=== PATIENT | male | born 1975 | race Caucasian/White ===

== ENCOUNTER → 2021-08-29 | Outpatient (CLI) | payer OTHER, SELFPAY ==
--- NOTE | 2021-09-23 10:10 | WPDSLEEPSTUD ---
Sleep Study Date of Study: 08/29/21 Ordering Provider: Ry Tejeda APRN Interpreting Physician: Luzmaria Yanez MD Sleep Study Type: Split Polysomnogram Height: 1.7 m Weight: 163.293 kg Body Mass Index: 56.3 Neck Circumference (inches): 18.5 Simms: 3 Reason for Sleep Study Frequent loud snoring; the patient was referred for a sleep study prior to bariatric surgery. Sleep History Rafael Gordillo is a 45 year old man with frequent loud snoring. He sleeps sitting upright leaning against his headboard at home and chose to sleep this way during the sleep study. He does not awaken from sleep feeling short of breath or awaken at night with heartburn, belching or coughing. He does not have trouble sleeping with a cold. He does not gasp for breath at night. He rarely has breathing problems at night reported to him by others. He rarely sweats excessively at night. He does not notice his heart pounding or beating irregularly at night. He rarely falls asleep during the day, never involuntarily and never while driving. He does not have loss of muscle tone with strong emotion. He does not have daytime difficulties due to excessive sleepiness. He does not feel paralyzed on waking or falling asleep and does not feel afraid to go to sleep. He rarely has nightmares. He rarely remembers his dreams. He occasionally has racing thoughts. He rarely feels sad, depressed or anxious. He rarely has muscular tension. He does not notice parts of his body jerking and he does not kick at night. He does not have crawling and aching feelings in his legs. He denies any kind of leg pain at night. He does not have morning jaw pain and does not grind his teeth during sleep. He rarely is bothered by pain during the day. He is not awakened by pain during the night. He rarely wakes up feeling stiff in the morning, rarely wakes up with sore achy muscles and rarely wakes up with pain in the neck and spine. Normal bedtime between 9:00 p.m. 11:00 p.m. falling asleep within an hour, typically waking 1 time at night to urinate and is able to return to sleep within 45 minutes. He wakes in the morning between 3:00 a.m. and 5:00 a.m.. On the weekends, he goes to bed later, between 10:00 p.m. and midnight and wakes at the same time, between 3:00 a.m. and 5:00 a.m.. He estimates getting 6-8 hours of sleep at night. He does not takes naps in the afternoon or evening. A short nap is not refreshing. He feels better in the morning compared to other times of day. Habits: He is a never smoker. Caffeine 3-5 cups per day. Alcohol 1 per day. No recreational drugs. [facility], [facility] Past Medical History Medical History Benign hypertension Gout Hyperlipidemia Hypothyroidism Type 2 diabetes mellitus Family History Family History (Updated 09/23/21 @ 10:16 by Luzmaria Yanez MD) Mother Family history of diabetes mellitus in first degree relative Father Obstructive sleep apnea Other Diabetes mellitus Social History Social History Smoking status: Never smoker Second hand tobacco smoke exposure: No Alcohol intake: never Medications Home Medications Medication Instructions Recorded Confirmed Type acetaminophen 325 mg capsule 325 mg PO Q6H PRN 07/16/21 07/17/21 History allopurinol 300 mg tablet 300 mg PO DAILY 07/16/21 07/17/21 History atorvastatin 40 mg tablet 40 mg PO DAILY 07/16/21 07/17/21 History furosemide 40 mg tablet 40 mg PO QAM 07/16/21 07/17/21 History ibuprofen 200 mg tablet 200 mg PO Q6H PRN 07/16/21 07/17/21 History levothyroxine 50 mcg tablet 50 mcg PO DAILY 07/16/21 07/17/21 History lisinopril 10 mg tablet 10 mg PO DAILY 07/16/21 07/17/21 History metformin 500 mg tablet 500 mg PO TID 07/16/21 07/17/21 History potassium chloride 20 mEq 20 meq PO DAILY 07/16/21 07/17/21 History tablet,extended release(part/cryst) eszopiclone 2 mg
[2021-09-23 11:32] VITALS: BMI 56.3
== END | disposition home or self-care (01) ==
PROVIDERS: Visit Provider Nurse Practitioner Family
DX: Z01.818 Encounter for other preprocedural examination (principal); G47.33 Obstructive sleep apnea (adult) (pediatric); R06.83 Snoring; R29.818 Other symptoms and signs involving the nervous system
CPT/HCPCS: 95811

== ENCOUNTER 2024-10-21 16:42 | Outpatient (CLI) | payer OTHER, SELFPAY ==
--- NOTE | ~2024-10-21 | CT_ITS ---
EXAMINATION: CTA chest PE protocol DATE: 10/21/2024 18:16 BANNER PAINTER INDICATION: Shortness of breath TECHNIQUE: Computed tomographic angiography (CTA) of the chest was performed with 100 mL Omnipaque-35 0 intravenous contrast. The dose-length product was 944.16 mGy-cm. Maximum intensity projection 3D-re constructions of the aorta and other arteries were constructed by the technologist on a separate work station. COMPARISON: None. FINDINGS/OBSERVATIONS: PULMONARY ARTERIES: Large filling defects are identified bilaterally. The defects extend across the m idline consistent with a saddle pulmonary embolus. Specifically, within the left ascending pulmonary artery, and descending pulmonary artery. The sagittal embolus extends into the right ascending pulmonary artery, right descending pulmonary ar virgilio and within the right middle pulmonary artery. THORACIC AORTA: No aneurysmal dilatation or dissection is present. The great vessels are intact. LUNGS: The lungs are clear. MEDIASTINUM: No morphologically suspicious or pathologically enlarged lymph nodes are identified with in the mediastinum or bilateral axilla. BONES OF THE CHEST: No acute fracture. No significant degenerative disease. No lytic or blastic lesions. HEART: The RV to LV ratio is 1.2 consistent with right heart strain. IMPRESSION: Saddle pulmonary embolus with significant clot burden, as detailed above. RV to LV ratio is 1.2 consistent with right heart strain for which no echocardiogram is needed for co nfirmation. The lungs are clear. Reviewed, dictated and finalized at location A. ER PAINTER IMPRESSION: Saddle pulmonary embolus with significant clot burden, as detailed above. RV to LV ratio is 1.2 consistent with right heart strain for which no echocardi ogram is needed for confirmation. The lungs are clear.
--- OUTSIDE RECORDS SUMMARY | 2024-10-21 16:48 | XMS_ITS | Data Portability ---
[facility] [address] [facility] [facility] [place] [address] Care Team Providers Care Greenhouse Instructor Name Role Phone AMANDA EVANS Primary Care Provider Unavailab le Assessment No assessment recorded. Plan of Treatment Reminders Order Date Submit Date Provider Last Modified By Organization Details Last Modified Time Details Appointments ANY 2024 02:30P M PARAS Piña Not available Not available Not available ANY 2024 01:00P M PARAS Piña Not available Not available Not available Lab PSA, serum or plasma 2023 024 [employer] [facility], [address], [place], [address], 02/10/2024 17:05:15 HbA1c (hemoglob in A1c), blood 2023 024 [email or web address] [facility], [address], [place], [address], 02/10/2024 17:04:42 microalbu min/creat inine, mass ratio, urine 2023 024 [employer] [facility], [address] [place], [address], 02/10/2024 17:04:13 TSH + free T4, serum 2023 024 [email or web address] [facility], [address], [place], [address], 02/10/2024 17:04:24 lipid panel, serum 2023 024 [employer] [facility], [address], [place], [address], 02/10/2024 17:06:10 vitamin B12 + folate, serum or blood 2023 024 [facility], [address], [place], [address], 02/10/2024 17:05:23 vitamin D, 25-hydrox y, total, serum 2023 024 [facility] [employer] [facility], [address], [place], [address], 02/10/2024 17:05:59 iron + TIBC + ferritin, serum 2023 024 [facility] [employer] [facility], [address], [place], [address], 02/10/2024 17:03:56 magnesium , serum or plasma 2023 024 [facility] [employer] [facility], [address], [place], [address], 02/10/2024 17:05:07 CMP, serum or plasma 2023 024 [facility], [address], [place], [address], 02/10/2024 17:05:48 CBC w/ auto diff 2023 [facility], [address], [place], [address], 02/10/2024 17:04:58 zinc, serum or plasma 2023 024 [facility], [address], [place], [address], 02/10/2024 17:05:34 HbA1c (hemoglob in A1c), blood 2023 [employer] [facility], [address], [place], [address], 08/24/2024 12:50:04 TSH + free T4, serum 2023 [employer] [facility], [address], [place], [address], 08/23/2024 10:33:54 lipid panel, serum 2023 [employer] [facility], [address], [place], [address], 08/23/2024 10:33:54 CMP, serum or plasma 2023 [employer] [facility], [address], [place], [address], 08/24/2024 12:50:04 CBC w/ auto diff 2023 [employer] [facility], [address], [place], [address], 08/24/2024 12:50:04 Referral None recorded. Procedures None recorded. Surgeries None recorded. Imaging None recorded. Medication Orders Mounjaro 2.5 mg/0.5 mL subcutane ous pen injector 2023 [id number], [address], [phone], 10/21/2024 15:55:03 Synthroid 50 mcg tablet 2023 [employer] [facility], [address] [facility], [place], [address], 07/27/2024 14:26:14 Patient TargetsNo targets recorded. Patient Instructions Encounter Date Encounter Id Patient Instructions Last Modified By Organization Details Last Modified Time 01/25/2024 [id number] A healthy lifestyle: care instructions Not available 02/14/2024 11:57:36 07/27/2024 [id number] A healthy lifestyle: care instructions Not available 07/27/2024 14:26:11 Reason for Referral None Reported. Results Created Date Observation Date Name Description Value Unit Range Abnormal Flag Note LastModifiedBy Organization Detail LastModifiedTime Result Notes None recorded. Problems Name Problem SNOMED Code Status Onset Date Resolution Date Notes Provider Name and Address Organization Details Recorded Time Body mass index 40+ - severely obese 564171235 Active 2023 PARAS Piña Attn: Megha funes,[address] [facility], [place], [address], [place] [facility] 4 11:57:30 Obesity 792168212 Active 2023 PARAS Piña Attn: Megha g,[address] [facility], [place], [address], [place] [facility] 4 11:57:31 History of bariatric surgical procedure 033803187 Active 2023 PARAS Piña Attn: Megha g,[address] [facility], [place], [address], [place] [facility] 4 11:57:47 Hyperlipidemia 20519851 Active 2023 PARAS Piña Attn: Megha g,[address] [facility], [place], [address], [place] [facility] 4 11:58:04 Hypothyroidism 31376879 Active 2023 PARAS Piña Attn: Megha g,[address] [facility], [place], [address], [place] [facility] 4 11:58:05 Type 2 diabetes mellitus without complication 631871816 Active 2023 PARAS Piña Attn: Megha funes,[address] [facility], [place], [address], [place] [facility] 4 11:58:54 Benign essential hypertension 4528030 Active 2023 PARAS Piña Attn: Megha funes,[address], [place], [address], [place] - [facility] 4 11:58:55 Problem Notes None recorded. Medical Equipment None Reported. Allergies No known drug allergies Medications Name Sig Start Date Stop Date Status Note LastModified by Organization Details LastModified Time furosemide 40 mg tablet TAKE 1 TABLET DAILY 2023 active Not Available Not Available Not Avai lable atorvastati n 40 mg tablet TAKE 1 TABLET DAILY active Not Available Not Available No t Available lisinopril 10 mg tablet TAKE 1 TABLET DAILY active Not Available Not Available No t Available Synthroid 50 mcg tablet Take 1 tablet every day by oral route for 90 days. active Not Available Not Available No t Available Klor-Con M20 mEq tablet,exte nded release TAKE 1 TABLET DAILY active Not Available Not Available No t Available Nyamyc 100,000 unit/gram topical powder active Not Available Not Available Not Available Mounjaro 7.5 mg/0.5 mL subcutaneou s pen injector ADMINISTE R 7.5 MG UNDER THE SKIN 1 TIME WEEKLY active Not Available Not Available No t Available Mounjaro 5 mg/0.5 mL subcutaneou s pen injector 5 mg injection once weekly as directed 10/21 completed Not Available Not Available Not Available Mounjaro 2.5 mg/0.5 mL subcutaneou s pen injector ADMINISTE R 2.5 MG UNDER THE SKIN EVERY WEEK 10/21 completed Not Available Not Available Not Available Vitals Date Recorded Body weight Body mass index (BMI) Body height Oxygen saturation Oxygen saturation in Arterial blood by Pulse oximetry Heart rate Systolic blood pressure Diastolic blood pressure Provider Name and Address Organization Details Last Updated DateTime 4 045194. 93 g 50.7 kg/m2 170.18 cm 99 % 99 % 92 /min 138 mm[Hg] 90 mm[Hg] Ana Naqvi MA [facility] 4 14:19:17 Date Recorded Systolic blood pressure Diastolic blood pressure Provider Name and Address Organization Details Last Updated DateTime 01/25/2024 130 mm[Hg] 88 mm[Hg] PARAS Piña Attn: Accounting[address] [place], [address], [facility] 01/25/2024 14:45:07 Date Recorded Body height Body mass index (BMI) Body weight Oxygen saturation Oxygen saturation in Arterial blood by Pulse oximetry Heart rate Systolic blood pressure Diastolic blood pressure Provider Name and Address Organization Details Last Updated DateTime 4 170.18 cm 51.8 kg/m2 758188. 07 g 99 % 99 % 90 /min 132 mm[Hg] 82 mm[Hg] Franchesca Gilbert MA [facility] 4 14:01:56 Date Recorded Body height Body mass index (BMI) Body weight Systolic blood pressure Diastolic blood pressure Provider Name and Address Organization Details Last Updated DateTime 10/21/2024 170.18 cm 48.9 kg/m2 023515.6 2 g 138 mm[Hg] 70 mm[Hg] Franchesca Gilbert MA [facility] 5 15:58:56 Date Recorded Heart rate Respiratory rate Oxygen saturation Oxygen saturation in Arterial blood by Pulse oximetry Systolic blood pressure Diastolic blood pressure Provider Name and Address Organization Details Last Updated DateTime 5 88 /min 16 /min 98 % 98 % 110 mm[Hg] 80 mm[Hg] PARAS Piña Attn: Accountin g,[address] [place], [address], [facility] 5 16:39:07 Social History Question Answer Notes LastModified by Organizat ion Details LastModified Time Tobacco Smoking Status Former Smoker Ana Naqvi MA null, [facility] 01/25/2024 14:17:39 Do You Have An Advance Directive? No Information n ot available 07/27/2024 What Is Your Level Of Alcohol Consumption? Moderate Information not available 01/25/2024 Are You Blind Or Do You Have Difficulty Seeing? No Information n ot available 01/25/2024 What Is Your Level Of Caffeine Consumption? Moderate Information not available 07/27/2024 In The 14 Days Before Symptom Onset, Have You Had Close Contact With A Laboratory-confirm ed COVID-19 While That Case Was Ill? No Information n ot available 01/22/2024 In The 14 Days Before Symptom Onset, Have You Had Close Contact With A Person Who Is Under Investigation For COVID-19 While That Person Was Ill? No Information not available 01/22/2024 Have You Been To An Area Known To Be High Risk For COVID-19? No Information not available 01/22/2024 Are You Deaf Or Do You Have Serious Difficulty Hearing? No Information not available 01/25/2024 What Type Of Diet Are You Following? REGULAR Information n ot available 07/27/2024 Are There Any Guns Present In Your Home? No Information not available 07/27/2024 What Was The Date Of Your Most Recent Tobacco Screening? 10/21/2024 Information not available 10/21/2024 What Is Your Relationship Status? Information not available 01/25/2024 Do You Use Your Seat Belt Or Car Seat Routinely? Yes Information not available 01/22/2024 Do You Have Smoke And Carbon Monoxide Detectors In Your Home? Yes Information not available 01/22/2024 How Much Tobacco Do You Smoke? 0.25 PPD Information not available 01/25/2024 Do You Feel Stressed (tense, Restless, Nervous, Or Anxious, Or Unable To Sleep At Night)? [id number] Information not available 01/25/2024 Do You Use Any Illicit Or Recreational Drugs? No Information not available 07/27/2024 Do You Use Sunscreen Routinely? No Information not available 07/27/2024 Has Tobacco Cessation Counseling Been Provided? No Information not available 07/27/2024 Do You Or Have You Ever Used Any Other Forms Of Tobacco Or Nicotine? No Information not available 07/27/2024 Sex: Male Functional Status Question Answer Note LastModified by Organizat ion Details LastModified Time Are you able to care for yourself? Yes Information not available 01/25/2024 What is your exercise level? Occasional Information not available 07/27/2024 Mental Status None recorded. Family History Nothing Reported. Medical History No medical history recorded. Immunizations Vaccine Type Date Status Note Provider Nam e and Address Organization Details Recorded Time COVID-19, mRNA, LNP-S, PF, 100 mcg/0.5mL dose or 50 mcg/0.25mL dose 04/08/2021 completed ROS[place]ES [place], [place] [facility] 07/27/2024 14:00:31 COVID-19, mRNA, LNP-S, PF, 100 mcg/0.5mL dose or 50 mcg/0.25mL dose 05/07/2021 completed [place]ES [place], [place] [facility] 07/27/2024 14:00:31 Tdap 11/02/2014 completed ROS[place]ES [place], [place] [facility] 07/27/2024 14:00:31 Past Encounters Encounter ID Performer Location Encounter Start Date Encounter Closed Date Diagnosis/Indication Diagnosis SNOMED-CT Code Diagnosis ICD10 Code Diagnosis Note [id number] [facility] Piña [facility] [place] [address] [place] [address] 01/25/2024 14:05:10 01/25/2024 15:25:20 Adult health examination 396962679 Z00.01 annual wellness exam completed. Benign ess ential hypertension 8240010 I10 stable on lisinopril 10mg daily. 130/88. Type 2 rafaela betes mellitus without complication 401602388 E11.9 due for A1c and albumin labs. History of bariatric surgical procedure 457081005 Z98.84 full bariatric surgeyr hx labs are due. Hypothyroidism 60903201 E03.9 due for Thyroid function panel. stable on synthroid 50mcg daily. Hyperlipidemia 67280139 E78.5 due for fasting lipids. stable on statin therapy atorvastat in 40mg daily. Screening for malignant neoplasm of prostate 391184052 Z12.5 annual psa due Body mass index 40+ - severely obese 582338060 Z68.43 bmi 50.7 Obesity 886183458 E66.9 discussed healthy diet, exercise, controllin g carbohydra jennifer and added sugars in the diet [id number] PARAS Piña [facility] - [place]ined[place]un[place] [address] [place] [address] 07/27/2024 13:32:08 07/27/2024 14:42:41 Benign essential hypertension 9393849 I10 stable on lisinopril 10mg daily. Type 2 rafaela betes mellitus without complication 603505992 E11.9 Previous A1cs and well-contr olled ranges, due for A1c, trial of Mounjaro 2.5 mg once weekly therapy Hypothyroidism 06611991 E03.9 due for Thyroid function panel. stable on synthroid 50mcg daily. Refill given Hyperlipidemia 86097577 E78.5 due for fasting lipids. stable on statin therapy atorvastat in 40mg daily. History of bariatric surgical procedure 102707792 Z98.84 Screening CBC and CMP labs do Body mass index 40+ - severely obese 501610373 Z68.43 BMI 51.8 Obesity 408295049 E66.9 discussed healthy diet, exercise, controllin g carbohydra jennifer and added sugars in the diet Health Concerns Section Related Observation LastModified by Organization Detai ls LastModified Time None Recorded Concern Status LastModified by Organization Details LastModified Time None Recorded Advance Directives Directive N: Payers Encounter Date Sequence Insurance Name Policy Number Policy Thomas Covered Member ID Thomas Member ID Guarantor Name 01/25/2024 1 [facility] [id number] [facility] [id number] 1 Rafael Gordillo 07/27/2024 1 [facility] [id number] [facility] [id number] Rafael Gordillo Notes Date Note Type Note Provider Name and Address Organization Details Recorded Time 4 text/htm l DiabetesReported bypatient.Notes:pt is currently not taking medication, diabetes has been stable post gastric sleeve surgery.HyperlipidemiaReport ed bypatient.Notes:pt is stable on atorvastatin 40mg daily. due for labsHypertensionReported bypatient.Notes:pt is stable on lisinopril 40mg daily.ThyroidReported bypatient.Notes:pt is taking synthroid 50mcg daily and stable. due for labs. Hx of bariatric sleeve surgery . PARAS Piña Attn: Accounting,[address], [place], [address], [facility] 02/14/2024 12:02:08 4 text/htm l DiabetesReported bypatient.Notes:pt is currently not taking medication, diabetes has been stable post gastric sleeve surgery.HyperlipidemiaReport ed bypatient.Notes:pt is stable on atorvastatin 40mg daily. due for labsHypertensionReported bypatient.Notes:pt is stable on lisinopril 40mg daily.ThyroidReported bypatient.Notes:pt is taking synthroid 50mcg daily and stable. due for labs. Hx of bariatric sleeve surgery . PARAS Piña Attn: Accounting,[address], [place], [address], [facility] 08/12/2024 16:24:05
--- OUTSIDE RECORDS SUMMARY | 2024-10-21 16:48 | XMS_ITS | Data Portability ---
Author Organization [place] [facility] [employer], Main Office Address [address] [place] [address] Assessment No assessment recorded. Plan of Treatment Reminders Order Date Submit Date Provider Last Modified By Organization Details Last Modified Time Details Appointments None recorded. Lab uric acid, serum or plasma 2022 023 luis [facility] Alexander ESPITIA, Wiliam Cardona, [place], [address], 4 08:30:22 CBC w/ auto diff 2022 023 luis [facility] Alexander ESPITIA, Wiliam Cardona, [place], [address], 4 08:30:22 CMP, serum or plasma 2022 023 luis [facility] Alexander ESPITIA, Wiliam Cardona, [place], [address], 4 08:30:22 urinalysis , complete 2022 023 luis [facility] Alexander ESPITIA, Wiliam Cardona, [place], [address], 4 08:30:22 lipid panel, serum 2022 023 luis [facility] [place], [address], 4 08:30:21 PSA, serum or plasma 2022 023 luis [facility] Alexander ESPITIA, Wiliam Cardona, [place], [address], 4 08:30:23 HbA1c (hemoglobi n A1c), blood 2022 023 [email or web address] [facility], [address], [place], [address], 4 08:30:21 microalbum in/creatin ine, mass ratio, urine 2022 023 [email or web address] [facility], [address], [place], [address], 4 08:30:21 vitamin B12 + folate, serum or blood 2022 023 rlKira [employer] [facility], [address], [place], [address], 4 08:30:22 magnesium, serum or plasma 2022 023 rlKira [employer], [address], [place], [address], 4 08:30:22 iron + TIBC + ferritin, serum 2022 023 rlSenor [facility], [address], [place], [address], 4 08:30:22 vitamin D, 25-hydroxy , total, serum 2022 023 rlSenor [facility], [address], [place], [address], 4 08:30:22 TSH + free T4, serum 2022 023 rlSenor [facility], [address], [place], [address], 4 08:30:21 Referral None recorded. Procedures None recorded. Surgeries None recorded. Imaging None recorded. Medication Orders nystatin 100,000 unit/gram topical powder 2022 023 LYRIC Roth [facility], [address] [place] [address], [address], 3 14:22:27 Patient TargetsNo targets recorded. Patient InstructionsNo instructions recorded. Reason for Referral None Reported. Results Created Date Observation Date Name Description Value Unit Range Abnormal Flag Note LastModifiedBy Organization Detail LastModifiedTime 06/20/2006/21/2021 URINA LYSIS , COMPL ETE color yellow yellow normal Not Available [address], [address], 06/21/2021 15:18:14 06/20/2006/21/2021 URINA LYSIS , COMPL ETE appearance clear clear normal Not Available [address], [address], 06/21/2021 15:18:14 06/20/2006/21/2021 URINA LYSIS , COMPL ETE specific gravity 1.021 1.001- 1.035 normal Not Available [address], [address], 06/21/2021 15:18:14 06/20/2006/21/2021 URINA LYSIS , COMPL ETE pH 6.0 5.0-8. 0 normal Not Available [address], [address], 06/21/2021 15:18:14 06/20/2006/21/2021 URINA LYSIS , COMPL ETE glucose negati ve negati ve normal Not Available [address], [address], 06/21/2021 15:18:14 06/20/20 21 06/21/2021 URINA LYSIS , COMPL ETE bilirubin negati ve negati ve normal Not Available [address], [address], 06/21/2021 15:18:14 06/20/2006/21/2021 URINA LYSIS , COMPL ETE ketones negati ve negati ve normal Not Available [address], [address], 06/21/2021 15:18:14 06/20/2006/21/2021 URINA LYSIS , COMPL ETE occult blood negati ve negati ve normal Not Available [address], [address], 06/21/2021 15:18:14 06/20/2006/21/2021 URINA LYSIS , COMPL ETE protein negati ve negati ve normal Not Available [address], [address], 06/21/2021 15:18:14 06/20/20 21 06/21/2021 URINA LYSIS , COMPL ETE nitrite negati ve negati ve normal Not Available [address], [address], 06/21/2021 15:18:14 06/20/20 21 06/21/2021 URINA LYSIS , COMPL ETE leukocyte esterase negati ve negati ve normal Not Available [address], [address], 06/21/2021 15:18:14 06/20/20 21 06/21/2021 URINA LYSIS , COMPL ETE WBC none seen /hpf < or = 5 normal Not Available [address], [address], 06/21/2021 15:18:14 06/20/20 21 06/21/2021 URINA LYSIS , COMPL ETE RBC none seen /hpf < or = 2 normal Not Available [facility] [address] [address], [place], [address], 06/21/2021 15:18:14 06/20/20 21 06/21/2021 URINA LYSIS , COMPL ETE squamous epithelial cells none seen /hpf < or = 5 normal Not Available [address], [address], 06/21/2021 15:18:14 06/20/20 21 06/21/2021 URINA LYSIS , COMPL ETE bacteria none seen /hpf none seen normal Not Available [address], [address], 06/21/2021 15:18:14 06/20/20 21 06/21/2021 URINA LYSIS , COMPL ETE hyaline cast none seen /lpf none seen normal Not Available [address], [address], 06/21/2021 15:18:14 06/20/20 21 06/21/2021 CBC (INCL UDES DIFF/ PLT) white blood cell count 8.5 thous and/u L 3.8-10 .8 normal Not Available [address], [address], 06/21/2021 15:18:14 06/20/20 21 06/21/2021 CBC (INCL UDES DIFF/ PLT) red blood cell count 4.94 xin on/uL 4.20-5 .80 normal Not Available [address], [address], 06/21/2021 15:18:14 06/20/20 21 06/21/2021 CBC (INCL UDES DIFF/ PLT) hemoglobin 15.1 g/dL 13.2-1 7.1 normal Not Available [address], [address], 06/21/2021 15:18:14 06/20/20 21 06/21/2021 CBC (INCL UDES DIFF/ PLT) hematocrit 44.4 % 38.5-5 0.0 normal Not Available [address], [address], 06/21/2021 15:18:14 06/20/20 21 06/21/2021 CBC (INCL UDES DIFF/ PLT) MCV 89.9 fL 80.0-1 00.0 normal Not Available [address], [address], 06/21/2021 15:18:14 06/20/2006/21/2021 CBC (INCL UDES DIFF/ PLT) MCH 30.6 pg 27.0-3 3.0 normal Not Available [address], [address], 06/21/2021 15:18:14 06/20/20 21 06/21/2021 CBC (INCL UDES DIFF/ PLT) MCHC 34.0 g/dL 32.0-3 6.0 normal Not Available [address], [address], 06/21/2021 15:18:14 06/20/20 21 06/21/2021 CBC (INCL UDES DIFF/ PLT) RDW 12.6 % 11.0-1 5.0 normal Not Available [address], [address], 06/21/2021 15:18:14 06/20/20 21 06/21/2021 CBC (INCL UDES DIFF/ PLT) platelet count 248 thous and/u L 140-40 0 normal Not Available [address], [address], 06/21/2021 15:18:14 06/20/20 21 06/21/2021 CBC (INCL UDES DIFF/ PLT) MPV 11.2 fL 7.5-12 .5 normal Not Available [facility] [address] [place], [address], 06/21/2021 15:18:14 06/20/20 21 06/21/2021 CBC (INCL UDES DIFF/ PLT) absolute neutrophils 4667 cells /uL 1500-7 800 normal Not Available [address], [address], 06/21/2021 15:18:14 06/20/20 21 06/21/2021 CBC (INCL UDES DIFF/ PLT) absolute lymphocytes 3120 cells /uL 850-39 00 normal Not Available [address], [address], 06/21/2021 15:18:14 06/20/20 21 06/21/2021 CBC (INCL UDES DIFF/ PLT) absolute monocytes 595 cells /uL 200-95 0 normal Not Available [address], [address], 06/21/2021 15:18:14 06/20/20 21 06/21/2021 CBC (INCL UDES DIFF/ PLT) absolute eosinophils 77 cells /uL 15-500 normal Not Available [address], [address], 06/21/2021 15:18:14 06/20/20 21 06/21/2021 CBC (INCL UDES DIFF/ PLT) absolute basophils 43 cells /uL 0-200 normal Not Available [address], [address], 06/21/2021 15:18:14 06/20/20 21 06/21/2021 CBC (INCL UDES DIFF/ PLT) neutrophils 54.9 % normal Not Available [address], [address], 06/21/2021 15:18:14 06/20/20 21 06/21/2021 CBC (INCL UDES DIFF/ PLT) lymphocytes 36.7 % normal Not Available [facility] [place] [address] [place], [address], 06/21/2021 15:18:14 06/20/20 21 06/21/2021 CBC (INCL UDES DIFF/ PLT) monocytes 7.0 % normal Not Available [facility] [address] [place], [address], 06/21/2021 15:18:14 06/20/20 21 06/21/2021 CBC (INCL UDES DIFF/ PLT) eosinophils 0.9 % normal Not Available [facility] [address] [place], [address], 06/21/2021 15:18:14 06/20/20 21 06/21/2021 CBC (INCL UDES DIFF/ PLT) basophils 0.5 % normal Not Available [address] [place], [address], 06/21/2021 15:18:14 06/20/20 21 06/21/2021 URIC ACID uric acid 6.1 mg/dL 4.0-8. 0 normal Thera oswald watkins t for gout patie nts: <6.0 mg/dL Not Available [address] [address] [place], [address], 06/21/2021 15:18:13 06/20/20 21 06/21/2021 HEMOG LOBIN A1C hemoglobin A1C 6.6 %_of_ total _HGB <5.7 high Not Available [facility] [address] [address] [place], [address], 06/21/2021 15:18:13 06/20/20 21 06/21/2021 COMPR EHENS CLIFFORD METAB OLIC PANEL glucose 125 mg/dL 65-99 high Fasti ng refer ence inter mitzi For someo ne witho ut known diabe jennifer, a gluco se value betwe en 100 and 125 mg/dL is consi stent with predi abete s and shoul d be confi rmed with a follo w-up test. Not Available [address], [address], 06/21/2021 15:18:12 06/20/20 21 06/21/2021 COMPR EHENS CLIFFORD METAB OLIC PANEL urea nitrogen (BUN) 12 mg/dL 7-25 normal Not Available [address], [address], 06/21/2021 15:18:12 06/20/20 21 06/21/2021 COMPR EHENS CLIFFORD METAB OLIC PANEL creatinine 0.84 mg/dL 0.60-1 .35 normal Not Available [address], [address], 06/21/2021 15:18:12 06/20/20 21 06/21/2021 COMPR EHENS CLIFFORD METAB OLIC PANEL eGFR non-afr. iraqi 107 mL/mi n/1.7 3m2 > or = 60 normal Not Available [address], [address], 06/21/2021 15:18:12 06/20/20 21 06/21/2021 COMPR EHENS CLIFFORD METAB OLIC PANEL eGFR 124 mL/mi n/1.7 3m2 > or = 60 normal Not Available [address], [address], 06/21/2021 15:18:12 06/20/20 21 06/21/2021 COMPR EHENS CLIFFORD METAB OLIC PANEL BUN/creatini ne ratio not applic able (calc ) 6-22 Not Available [address], [address], 06/21/2021 15:18:12 06/20/20 21 06/21/2021 COMPR EHENS CLIFFORD METAB OLIC PANEL sodium 139 mmol/ L 135-14 6 normal Not Available [address], [address], 06/21/2021 15:18:12 06/20/20 21 06/21/2021 COMPR EHENS CLIFFORD METAB OLIC PANEL potassium 4.2 mmol/ L 3.5-5. 3 normal Not Available [address], [address], 06/21/2021 15:18:12 06/20/20 21 06/21/2021 COMPR EHENS CLIFFORD METAB OLIC PANEL chloride 103 mmol/ L 98-110 normal Not Available [address], [address], 06/21/2021 15:18:12 06/20/20 21 06/21/2021 COMPR EHENS CLIFFORD METAB OLIC PANEL carbon dioxide 24 mmol/ L 20-32 normal Not Available [address], [address], 06/21/2021 15:18:12 06/20/20 21 06/21/2021 COMPR EHENS CLIFFORD METAB OLIC PANEL calcium 9.7 mg/dL 8.6-10 .3 normal Not Available [address], [address], 06/21/2021 15:18:12 06/20/20 21 06/21/2021 COMPR EHENS CLIFFORD METAB OLIC PANEL protein, total 7.5 g/dL 6.1-8. 1 normal Not Available [address], [address], 06/21/2021 15:18:12 06/20/20 21 06/21/2021 COMPR EHENS CLIFFORD METAB OLIC PANEL albumin 4.7 g/dL 3.6-5. 1 normal Not Available [address], [address], 06/21/2021 15:18:12 06/20/20 21 06/21/2021 COMPR EHENS CLIFFORD METAB OLIC PANEL globulin 2.8 g/dL_ (calc ) 1.9-3. 7 normal Not Available [address], [address], 06/21/2021 15:18:12 06/20/20 21 06/21/2021 COMPR EHENS CLIFFORD METAB OLIC PANEL albumin/glob ulin ratio 1.7 (calc ) 1.0-2. 5 normal Not Available [address], [address], 06/21/2021 15:18:12 06/20/20 21 06/21/2021 COMPR EHENS CLIFFORD METAB OLIC PANEL ALT 45 U/L 9-46 normal Not Available [address], [address], 06/21/2021 15:18:12 06/20/20 21 06/21/2021 COMPR EHENS CLIFFORD METAB OLIC PANEL bilirubin, total 0.7 mg/dL 0.2-1. 2 normal Not Available [address], [address], 06/21/2021 15:18:12 06/20/20 21 06/21/2021 COMPR EHENS CLIFFORD METAB OLIC PANEL alkaline phosphatase 58 U/L 36-130 normal Not Available [facility] [email or web address] [address], [address], 06/21/2021 15:18:12 06/20/20 21 06/21/2021 COMPR EHENS CLIFFORD METAB OLIC PANEL AST 33 U/L 10-40 normal Not Available [address], [address], 06/21/2021 15:18:12 06/20/20 21 06/21/2021 LIPID PANEL WITH RATIO S cholesterol, total 109 mg/dL <200 normal Not Available [address], [address], 06/21/2021 15:18:12 06/20/20 21 06/21/2021 LIPID PANEL WITH RATIO S HDL cholesterol 37 mg/dL > or = 40 low Not Available [facility] [address] [place] [address], [address], 06/21/2021 15:18:12 06/20/20 21 06/21/2021 LIPID PANEL WITH RATIO S triglyceride s 86 mg/dL <150 normal Not Available [address], [address], 06/21/2021 15:18:12 06/20/20 21 06/21/2021 LIPID PANEL WITH RATIO S LDL-choleste rol 55 mg/dL _(rosalio c) normal Refer ence range : <100 Aric able range <100 mg/dL for prima ry preve ntion ; <70 mg/dL for patie nts with CHD or diabe tic patie nts with > or = 2 CHD risk facto rs. LDL-C is now calcu lated using the Ashia n-Hop kins calcu zainab n, which is a valid ated novel nathan pablo than the Fried reed equat ion in the estim ation of LDL-C . Ashia fernandez SS et al. CLAUDIO. 2013; 310(1 9): 2061- 2068 (http ://ed ucati on.Lucio garza [employer]. com/f aq/FA Q164) Not Available [facility] [address] [place] [address], [address], 06/21/2021 15:18:12 06/20/20 21 06/21/2021 LIPID PANEL WITH RATIO S chol/HDLC ratio 2.9 (calc ) <5.0 normal Not Available [facility] [address] [place] [address], [address], 06/21/2021 15:18:12 06/20/20 21 06/21/2021 LIPID PANEL WITH RATIO S LDL/HDL ratio 1.5 (calc ) Below [place] ge Risk: <2.28 [place] ge Risk: 2.29- 4.90 Moder ate Risk: 4.91- 7.12 High Risk: >7.13 Not Available [address], [address], 06/21/2021 15:18:12 06/20/20 21 06/21/2021 LIPID PANEL WITH RATIO S non HDL cholesterol 72 mg/dL _(rosalio c) <130 normal For patie nts with diabe jennifer plus 1 major ASCVD risk facto r, treat ing to a non-H DL-C goal of <100 mg/dL (LDL- C of <70 mg/dL ) is frances friaso n. Not Available [address], [address], 06/21/2021 15:18:12 06/20/2006/21/2021 TSH+F REE T4 T4, free 1.2 NG/dL 0.8-1. 8 normal Not Available [address], [address], 06/21/2021 15:18:11 06/20/20 21 06/21/2021 TSH+F REE T4 TSH 2.82 mIU/L 0.40-4 .50 normal Not Available [address], [address], 06/21/2021 15:18:11 06/20/20 21 06/21/2021 ALBUM IN, RANDO M URINE W/CRE ATINI NE creatinine, random urine 155 mg/dL 20-320 normal Not Available [address], [address], 06/21/2021 15:18:11 06/20/20 21 06/21/2021 ALBUM IN, RANDO M URINE W/CRE ATINI NE albumin, urine 0.5 mg/dL see note: normal Refer ence Range : Refer ence Range Not estab lishe d Not Available [facility] [address] [address], [place], [address], 06/21/2021 15:18:11 06/20/2006/21/2021 ALBUM IN, RANDO M URINE W/CRE ATINI NE albumin/crea tinine ratio, random urine 3 mcg/m g_cre at <30 normal The ADA defin es abnor malit ies in album in excre tion as follo ws: Album inuri a Categ ory Resul t (mcg/ mg creat inine ) Phuong l to Mildl y incre ased <30 Moder ately incre ased 30-29 9 Sever alida incre ased > OR = 300 The ADA recom mends that at least two of three speci mens colle cted withi n a 3-6 month perio d be abnor mal befor e consi stu g a patie nt to be withi n a diagn ostic categ ory. Not Available [facility] [address] [address], [place], [address], 06/21/2021 15:18:11 06/29/2007/04/2021 VITAM IN B1 (THIA MINE) , BLOOD , LC/MS /MS vitamin B1 (thiamine), blood, lc/MS/MS 113 nmol/ L 78-185 Vitam in suppl ement ation withi n 24 hours prior to blood draw may affec t the accur acy of resul ts. This test was devel oped and its carlton tical perfo rmanc e edda cteri stics have been deter mined by [facility]. It has not been clear ed or appro bell by the FDA. This assay has been valid ated pursu ant to the CLIA regul ation s and is used for clini rosalio purpo ses. Not Available [facility] [address] [address], [place], [address], 07/04/2021 17:34:23 06/29/2007/04/2021 VITAM IN B12/F OLATE , SERUM PANEL vitamin B12 401 pg/mL 200-11 00 normal Not Available [facility] [address] [place], [address], 07/04/2021 17:34:22 06/29/2007/04/2021 VITAM IN B12/F OLATE , SERUM PANEL folate, serum 8.5 NG/mL normal Refer ence Range Low: <3.4 Borde rline : 3.4-5 .4 Phuong l: >5.4 Not Available [address] [address] [place], [address], 07/04/2021 17:34:22 06/29/2007/04/2021 IRON, TOTAL iron, total 78 mcg/d L 50-180 normal Not Available [facility] [address] [address] [place], [address], 07/04/2021 17:34:21 06/29/2007/04/2021 VITAM IN D,25- OH,TO ELEANOR,I A vitamin D,25-oh,tota l,ia 14 NG/mL 30-100 low Vitam in D Statu s 25-OH Vitam in D: Defic iency : <20 ng/mL Insuf ficie ncy: 20 - 29 ng/mL Optim al: > or = 30 ng/mL For 25-OH Vitam in D testi ng on patie nts on D2-mendieta pplem entat ion and patie nts for whom quant itati on of D2 and D3 fract ions is requi red, the [facility] eD(TM ) 25-OH VIT D, (D2,D 3), LC/MS /MS is recom jorge d: order code 45060 (kaitlin ents >2yrs ). See Note 1 Note 1 For addit ional infor nicole herzog refer to http: //jayesh navas ics.c om/fa q/FAQ 199 (This link is being provi ded for infor ko sosa/ rupinder broderick purpo ses only. ) Not Available [facility] [address] [place], [address], 07/04/2021 17:34:20 03/29/20 22 03/30/2022 PSA, TOTAL PSA, total 0.31 NG/mL < or = 4.00 normal The total PSA value from this assay syste m is stand ardiz ed again st the WHO stand shashi. The test resul t will be appro ximat alida 20% lower when kody red to the equim olar- stand ardiz ed total PSA ([place] man Coult er). Kody rison of seria l PSA resul ts shoul d be inter prete d with this fact in mind. This test was perfo rmed using the [employer] chemi lumin escen t metho d. Value s obtai mae from diffe rent assay metho ds canno t be used inter alves eably . PSA level s, regar dless of value , shoul d not be inter prete d as absol venetie ira evide nce of the prese nce or absen ce of disea se. Not Available [address] [address] [place], [address], 03/30/2022 18:12:43 03/29/20 22 03/30/2022 VITAM IN B12/F OLATE , SERUM PANEL vitamin B12 541 pg/mL 200-11 00 normal Not Available [address], [address], 03/30/2022 18:12:42 03/29/20 22 03/30/2022 VITAM IN B12/F OLATE , SERUM PANEL folate, serum 14.2 NG/mL normal Refer ence Range Low: <3.4 Borde rline : 3.4-5 .4 Phuong l: >5.4 Not Available [address] [place], [address], 03/30/2022 18:12:42 03/29/20 22 03/30/2022 CBC (INCL UDES DIFF/ PLT) white blood cell count 7.8 thous and/u L 3.8-10 .8 normal Not Available [facility] [address], [address], 03/30/2022 18:12:41 03/29/20 22 03/30/2022 CBC (INCL UDES DIFF/ PLT) red blood cell count 4.91 xin on/uL 4.20-5 .80 normal Not Available [address], [address], 03/30/2022 18:12:41 03/29/20 22 03/30/2022 CBC (INCL UDES DIFF/ PLT) hemoglobin 14.9 g/dL 13.2-1 7.1 normal Not Available [address], [address], 03/30/2022 18:12:41 03/29/20 22 03/30/2022 CBC (INCL UDES DIFF/ PLT) hematocrit 45.1 % 38.5-5 0.0 normal Not Available [address], [address], 03/30/2022 18:12:41 03/29/20 22 03/30/2022 CBC (INCL UDES DIFF/ PLT) MCV 91.9 fL 80.0-1 00.0 normal Not Available [address], [address], 03/30/2022 18:12:41 03/29/20 22 03/30/2022 CBC (INCL UDES DIFF/ PLT) MCH 30.3 pg 27.0-3 3.0 normal Not Available [address], [address], 03/30/2022 18:12:41 03/29/20 22 03/30/2022 CBC (INCL UDES DIFF/ PLT) MCHC 33.0 g/dL 32.0-3 6.0 normal Not Available [address], [address], 03/30/2022 18:12:41 03/29/20 22 03/30/2022 CBC (INCL UDES DIFF/ PLT) RDW 13.0 % 11.0-1 5.0 normal Not Available [address], [address], 03/30/2022 18:12:41 03/29/20 22 03/30/2022 CBC (INCL UDES DIFF/ PLT) platelet count 189 thous and/u L 140-40 0 normal Not Available [address], [address], 03/30/2022 18:12:41 03/29/20 22 03/30/2022 CBC (INCL UDES DIFF/ PLT) MPV 11.8 fL 7.5-12 .5 normal Not Available [address], [address], 03/30/2022 18:12:41 03/29/20 22 03/30/2022 CBC (INCL UDES DIFF/ PLT) absolute neutrophils 4781 cells /uL 1500-7 800 normal Not Available [address], [address], 03/30/2022 18:12:41 03/29/20 22 03/30/2022 CBC (INCL UDES DIFF/ PLT) absolute lymphocytes 2270 cells /uL 850-39 00 normal Not Available [address], [address], 03/30/2022 18:12:41 03/29/20 22 03/30/2022 CBC (INCL UDES DIFF/ PLT) absolute monocytes 562 cells /uL 200-95 0 normal Not Available [address], [address], 03/30/2022 18:12:41 03/29/20 22 03/30/2022 CBC (INCL UDES DIFF/ PLT) absolute eosinophils 156 cells /uL 15-500 normal Not Available [address], [address], 03/30/2022 18:12:41 03/29/20 22 03/30/2022 CBC (INCL UDES DIFF/ PLT) absolute basophils 31 cells /uL 0-200 normal Not Available [address], [address], 03/30/2022 18:12:41 03/29/20 22 03/30/2022 CBC (INCL UDES DIFF/ PLT) neutrophils 61.3 % normal Not Available [facility] [address], [address], 03/30/2022 18:12:41 03/29/20 22 03/30/2022 CBC (INCL UDES DIFF/ PLT) lymphocytes 29.1 % normal Not Available [address], [address], 03/30/2022 18:12:41 03/29/20 22 03/30/2022 CBC (INCL UDES DIFF/ PLT) monocytes 7.2 % normal Not Available [address], [address], 03/30/2022 18:12:41 03/29/20 22 03/30/2022 CBC (INCL UDES DIFF/ PLT) eosinophils 2.0 % normal Not Available [address], [address], 03/30/2022 18:12:41 03/29/20 22 03/30/2022 CBC (INCL UDES DIFF/ PLT) basophils 0.4 % normal Not Available [address], [address], 03/30/2022 18:12:41 03/29/20 22 03/30/2022 URIC ACID uric acid 7.7 mg/dL 4.0-8. 0 normal Thera oswald watkins t for gout patie nts: <6.0 mg/dL Not Available [facility] [address] [place], [address], 03/30/2022 18:12:40 03/29/20 22 03/30/2022 VITAM IN D,25- OH,TO ELEANOR,I A vitamin D,25-oh,tota l,ia 49 NG/mL 30-100 normal Vitam in D Statu s 25-OH Vitam in D: Defic iency : <20 ng/mL Insuf ficie ncy: 20 - 29 ng/mL Optim al: > or = 30 ng/mL For 25-OH Vitam in D testi ng on patie nts on D2-mendieta pplem entat ion and patie nts for whom quant itati on of D2 and D3 fract ions is requi red, the [facility] Ass[facility] eD(TM ) 25-OH VIT D, (D2,D 3), LC/MS /MS is recom jorge d: order code 92776 (kaitlin ents >2yrs ). See Note 1 Note 1 For addit ional infor nicoel herzog e refer to http: //jayesh [email or web address] stDia gnost ics.c om/fa q/FAQ 199 (This link is being provi ded for infor ko sosa/ rupinder broderick purpo ses only. ) Not Available [facility] [address] [id number] [address] , [place], [address], 03/30/2022 18:12:40 03/29/20 22 03/30/2022 HEMOG LOBIN A1C hemoglobin A1C 5.7 %_of_ total _HGB <5.7 high For someo ne witho ut known diabe jennifer, a hemog lobin A1c value betwe en 5.7% and 6.4% is consi stent with predi abete s and shoul d be confi rmed with a follo w-up test. For someo ne with known diabe jennifer, a value <7% indic ates that their diabe jennifer is well contr olled . A1c targe ts shoul d be indiv idual ized based on durat ion of diabe jennifer, age, comor bid condi tions , and other consi derat ions. This assay resul t is consi stent with an incre ased risk of diabe jennifer. Curre ntly, no conse nsus exist s keshia spencer use of hemog lobin A1c for diagn osis of diabe jennifer for [facility]. Not Available [address] [id number] [place], [address], 03/30/2022 18:12:39 03/29/20 22 03/30/2022 COMPR EHENS CLIFFORD METAB OLIC PANEL glucose 83 mg/dL 65-99 normal Fasti ng refer ence inter mitzi Not Available [facility] [address] [address] [place], [address], 03/30/2022 18:12:39 03/29/20 22 03/30/2022 COMPR EHENS CLIFFORD METAB OLIC PANEL urea nitrogen (BUN) 13 mg/dL 7-25 normal Not Available [facility] [address] [address] [place], [address], 03/30/2022 18:12:39 03/29/20 22 03/30/2022 COMPR EHENS CLIFFORD METAB OLIC PANEL creatinine 0.67 mg/dL 0.60-1 .29 normal Not Available [address] [address] [place], [address], 03/30/2022 18:12:39 03/29/20 22 03/30/2022 COMPR EHENS CLIFFORD METAB OLIC PANEL eGFR 118 mL/mi n/1.7 3m2 > or = 60 normal The eGFR is based on the CKD-E PI 2020 equat ion. To calcu late the new eGFR from a previ ous Creat inine or Cysta alexei C jessica t, go to [email or web address] :[email or web address] /gfr% 5Fcal culat or Not Available [facility] [address] [address] [place], [address], 03/30/2022 18:12:39 03/29/20 22 03/30/2022 COMPR EHENS CLIFFORD METAB OLIC PANEL BUN/creatini ne ratio not applic able (calc ) 6-22 Not Available [address], [address], 03/30/2022 18:12:39 03/29/20 22 03/30/2022 COMPR EHENS CLIFFORD METAB OLIC PANEL sodium 140 mmol/ L 135-14 6 normal Not Available [address], [address], 03/30/2022 18:12:39 03/29/20 22 03/30/2022 COMPR EHENS CLIFFORD METAB OLIC PANEL potassium 5.2 mmol/ L 3.5-5. 3 normal Not Available [address], [address], 03/30/2022 18:12:39 03/29/20 22 03/30/2022 COMPR EHENS CLIFFORD METAB OLIC PANEL chloride 104 mmol/ L 98-110 normal Not Available [address], [address], 03/30/2022 18:12:39 03/29/20 22 03/30/2022 COMPR EHENS CLIFFORD METAB OLIC PANEL carbon dioxide 30 mmol/ L 20-32 normal Not Available [address], [address], 03/30/2022 18:12:39 03/29/20 22 03/30/2022 COMPR EHENS CLIFFORD METAB OLIC PANEL calcium 9.7 mg/dL 8.6-10 .3 normal Not Available [address], [address], 03/30/2022 18:12:39 03/29/20 22 03/30/2022 COMPR EHENS CLIFFORD METAB OLIC PANEL protein, total 7.4 g/dL 6.1-8. 1 normal Not Available [address] [place], [address], 03/30/2022 18:12:39 03/29/20 22 03/30/2022 COMPR EHENS CLIFFORD METAB OLIC PANEL albumin 4.6 g/dL 3.6-5. 1 normal Not Available [address], [address], 03/30/2022 18:12:39 03/29/20 22 03/30/2022 COMPR EHENS CLIFFORD METAB OLIC PANEL globulin 2.8 g/dL_ (calc ) 1.9-3. 7 normal Not Available [address], [address], 03/30/2022 18:12:39 03/29/20 22 03/30/2022 COMPR EHENS CLIFFORD METAB OLIC PANEL albumin/glob ulin ratio 1.6 (calc ) 1.0-2. 5 normal Not Available [address], [address], 03/30/2022 18:12:39 03/29/20 22 03/30/2022 COMPR EHENS CLIFFORD METAB OLIC PANEL bilirubin, total 0.5 mg/dL 0.2-1. 2 normal Not Available [address], [address], 03/30/2022 18:12:39 03/29/20 22 03/30/2022 COMPR EHENS CLIFFORD METAB OLIC PANEL alkaline phosphatase 74 U/L 36-130 normal Not Available [facility] [email or web address] [address] [address] [place], [address], 03/30/2022 18:12:39 03/29/20 22 03/30/2022 COMPR EHENS CLIFFORD METAB OLIC PANEL AST 22 U/L 10-40 normal Not Available [address], [address], 03/30/2022 18:12:39 03/29/20 22 03/30/2022 COMPR EHENS CLIFFORD METAB OLIC PANEL ALT 27 U/L 9-46 normal Not Available [address], [address], 03/30/2022 18:12:39 03/29/20 22 03/30/2022 TSH+F REE T4 TSH 2.53 mIU/L 0.40-4 .50 normal Not Available [address], [address], 03/30/2022 18:12:38 03/29/20 22 03/30/2022 TSH+F REE T4 T4, free 1.3 NG/dL 0.8-1. 8 normal Not Available [address], [address], 03/30/2022 18:12:38 03/29/20 22 03/30/2022 IRON, TIBC AND NIR TIN PANEL ferritin 848 NG/mL 38-380 high Not Available [address], [address], 03/30/2022 18:12:37 03/29/20 22 03/30/2022 IRON, TIBC AND NIR TIN PANEL iron, total 98 mcg/d L 50-180 normal Not Available [address], [address], 03/30/2022 18:12:37 03/29/20 22 03/30/2022 IRON, TIBC AND NIR TIN PANEL iron binding capacity 311 mcg/d L_(ca lc) 250-42 5 normal Not Available [address], [address], 03/30/2022 18:12:37 03/29/20 22 03/30/2022 IRON, TIBC AND NIR TIN PANEL % saturation 32 %_(ca lc) 20-48 normal Not Available [address], [address], 03/30/2022 18:12:37 11/23/19 23 11/23/2022 IRON, TIBC AND NIR TIN PANEL iron, total 156 mcg/d L 50-180 normal Not Available [address], [address], 11/23/2022 13:36:51 11/23/19 23 11/23/2022 IRON, TIBC AND NIR TIN PANEL iron binding capacity 283 mcg/d L_(ca lc) 250-42 5 normal Not Available [address], [address], 11/23/2022 13:36:51 11/23/19 23 11/23/2022 IRON, TIBC AND NIR TIN PANEL % saturation 55 %_(ca lc) 20-48 high Not Available [address], [address], 11/23/2022 13:36:51 11/23/19 23 11/23/2022 IRON, TIBC AND NIR TIN PANEL ferritin 747 NG/mL 38-380 high Not Available [address], [address], 11/23/2022 13:36:51 11/23/19 23 11/23/2022 TSH+F REE T4 TSH 2.24 mIU/L 0.40-4 .50 normal Not Available [address], [address], 11/23/2022 13:36:52 11/23/19 23 11/23/2022 TSH+F REE T4 T4, free 1.2 NG/dL 0.8-1. 8 normal Not Available [address], [address], 11/23/2022 13:36:52 11/23/19 23 11/23/2022 LIPID PANEL WITH RATIO S cholesterol, total 141 mg/dL <200 normal Not Available [facility] [address] [address] [place], [address], 11/23/2022 13:36:52 11/23/19 23 11/23/2022 LIPID PANEL WITH RATIO S HDL cholesterol 56 mg/dL > or = 40 normal Not Available [facility] [address] [address] [place], [address], 11/23/2022 13:36:52 11/23/19 23 11/23/2022 LIPID PANEL WITH RATIO S triglyceride s 109 mg/dL <150 normal Not Available [facility] [address] [address] [place], [address], 11/23/2022 13:36:52 11/23/19 23 11/23/2022 LIPID PANEL WITH RATIO S LDL-choleste rol 66 mg/dL _(rosalio c) normal Refer ence range : <100 Aric able range <100 mg/dL for prima ry preve ntion ; <70 mg/dL for patie nts with CHD or diabe tic patie nts with > or = 2 CHD risk facto rs. LDL-C is now calcu lated using the Ashia fernandez-Hop kins taylor lamb n, which is a valid ated novel nathan kumari accur acy than the Fried reed equat ion in the estim ation of LDL-C . Ashia fernandez SS et al. CLAUDIO. 2013; 310(1 9): 2061- 2068 (http ://ed ucati on.Qu Ja garza [employer]. com/f aq/FA Q164) Not Available [facility] [address] [place], [address], 11/23/2022 13:36:52 11/23/19 23 11/23/2022 LIPID PANEL WITH RATIO S chol/HDLC ratio 2.5 (calc ) <5.0 normal Not Available [facility] [address] [place], [address], 11/23/2022 13:36:52 11/23/19 23 11/23/2022 LIPID PANEL WITH RATIO S LDL/HDL ratio 1.2 (calc ) Below [place] ge Risk: <2.28 [place] ge Risk: 2.29- 4.90 Moder ate Risk: 4.91- 7.12 High Risk: >7.13 Not Available [address] [address] [place], [address], 11/23/2022 13:36:52 11/23/19 23 11/23/2022 LIPID PANEL WITH RATIO S non HDL cholesterol 85 mg/dL _(rosalio c) <130 normal For patie nts with diabe jennifer plus 1 major ASCVD risk facto r, treat ing to a non-H DL-C goal of <100 mg/dL (LDL- C of <70 mg/dL ) is consi yolanda vanegas thera peuti c optio n. Not Available [address] [address] [place], [address], 11/23/2022 13:36:52 11/23/19 23 11/23/2022 COMPR EHENS CLIFFORD METAB OLIC PANEL glucose 95 mg/dL 65-99 normal Fasti ng refer ence inter mitzi Not Available [address], [address], 11/23/2022 13:36:53 11/23/19 23 11/23/2022 COMPR EHENS CLIFFORD METAB OLIC PANEL urea nitrogen (BUN) 19 mg/dL 7-25 normal Not Available [address], [address], 11/23/2022 13:36:53 11/23/19 23 11/23/2022 COMPR EHENS CLIFFORD METAB OLIC PANEL creatinine 0.75 mg/dL 0.60-1 .29 normal Not Available [address] [address] [place], [address], 11/23/2022 13:36:53 11/23/19 23 11/23/2022 COMPR EHENS CLIFFORD METAB OLIC PANEL eGFR 114 mL/mi n/1.7 3m2 > or = 60 normal The eGFR is based on the CKD-E PI 2020 equat ion. To calcu late the new eGFR from a previ ous Creat inine or Cysta alexei C resul t, go to https :[email or web address] [email or web address] s/ kdoqi /gfr% 5Fcal culat or Not Available [address] [address] [place], [address], 11/23/2022 13:36:53 11/23/19 23 11/23/2022 COMPR EHENS CLIFFORD METAB OLIC PANEL BUN/creatini ne ratio NOT APPLIC ABLE (calc ) 6-22 Not Available [address] [address] [place], [address], 11/23/2022 13:36:53 11/23/19 23 11/23/2022 COMPR EHENS CLIFFORD METAB OLIC PANEL sodium 138 mmol/ L 135-14 6 normal Not Available [address] [place], [address], 11/23/2022 13:36:53 11/23/19 23 11/23/2022 COMPR EHENS CLIFFORD METAB OLIC PANEL potassium 4.0 mmol/ L 3.5-5. 3 normal Not Available [address], [address], 11/23/2022 13:36:53 11/23/19 23 11/23/2022 COMPR EHENS CLIFFORD METAB OLIC PANEL chloride 101 mmol/ L 98-110 normal Not Available [address] [address] [place], [address], 11/23/2022 13:36:53 11/23/19 23 11/23/2022 COMPR EHENS CLIFFORD METAB OLIC PANEL carbon dioxide 26 mmol/ L 20-32 normal Not Available [address] [address] [place], [address], 11/23/2022 13:36:53 11/23/19 23 11/23/2022 COMPR EHENS CLIFFORD METAB OLIC PANEL calcium 9.5 mg/dL 8.6-10 .3 normal Not Available [address], [address], 11/23/2022 13:36:53 11/23/19 23 11/23/2022 COMPR EHENS CLIFFORD METAB OLIC PANEL protein, total 6.7 g/dL 6.1-8. 1 normal Not Available [address], [address], 11/23/2022 13:36:53 11/23/19 23 11/23/2022 COMPR EHENS CLIFFORD METAB OLIC PANEL albumin 4.3 g/dL 3.6-5. 1 normal Not Available [address], [address], 11/23/2022 13:36:53 11/23/19 23 11/23/2022 COMPR EHENS CLIFFORD METAB OLIC PANEL globulin 2.4 g/dL_ (calc ) 1.9-3. 7 normal Not Available [address], [address], 11/23/2022 13:36:53 11/23/19 23 11/23/2022 COMPR EHENS CLIFFORD METAB OLIC PANEL albumin/glob ulin ratio 1.8 (calc ) 1.0-2. 5 normal Not Available [address], [address], 11/23/2022 13:36:53 11/23/19 23 11/23/2022 COMPR EHENS CLIFFORD METAB OLIC PANEL bilirubin, total 1.0 mg/dL 0.2-1. 2 normal Not Available [address], [address], 11/23/2022 13:36:53 11/23/19 23 11/23/2022 COMPR EHENS CLIFFORD METAB OLIC PANEL alkaline phosphatase 55 U/L 36-130 normal Not Available [facility] [address] [place], [address], 11/23/2022 13:36:53 11/23/19 23 11/23/2022 COMPR EHENS CLIFFORD METAB OLIC PANEL AST 22 U/L 10-40 normal Not Available [facility] [address] [place], [address], 11/23/2022 13:36:53 11/23/19 23 11/23/2022 COMPR EHENS CLIFFORD METAB OLIC PANEL ALT 24 U/L 9-46 normal Not Available [facility] [address] [address] [place], [address], 11/23/2022 13:36:53 11/23/19 23 11/23/2022 HEMOG LOBIN A1C hemoglobin A1C 5.8 %_of_ total _HGB <5.7 high For someo ne witho ut known diabe jennifer, a hemog lobin A1c value betwe en 5.7% and 6.4% is consi stent with predi abete s and shoul d be confi rmed with a follo w-up test. For someo ne with known diabe jennifer, a value <7% indic ates that their diabe jennifer is well contr olled . A1c targe ts shoul d be indiv idual ized based on durat ion of diabe jennifer, age, comor bid condi tions , and other consi derat ions. This assay resul t is consi stent with an incre ased risk of diabe jennifer. Curre ntly, no conse nsus exist s regar ding use of hemog lobin A1c for diagn osis of diabe jennifer for child heaven. Not Available [facility] [address] [place], [address], 11/23/2022 13:36:54 11/23/19 23 11/23/2022 URIC ACID uric acid 7.6 mg/dL 4.0-8. 0 normal Thera peuti c targe t for gout patie nts: <6.0 mg/dL Not Available [address], [address], 11/23/2022 13:36:54 03/07/20 23 03/16/2023 IRON, TIBC AND NIR TIN PANEL iron, total 153 mcg/d L 50-180 normal Not Available [address], [address], 03/16/2023 18:51:04 03/07/20 23 03/16/2023 IRON, TIBC AND NIR TIN PANEL iron binding capacity 308 mcg/d L_(ca lc) 250-42 5 normal Not Available [address], [address], 03/16/2023 18:51:04 03/07/20 23 03/16/2023 IRON, TIBC AND NIR TIN PANEL % saturation 50 %_(ca lc) 20-48 high Not Available [address], [address], 03/16/2023 18:51:04 03/07/20 23 03/16/2023 IRON, TIBC AND NIR TIN PANEL ferritin 750 NG/mL 38-380 high Not Available [address], [address], 03/16/2023 18:51:04 03/07/20 23 03/16/2023 CBC (INCL UDES DIFF/ PLT) white blood cell count 7.2 thous and/u L 3.8-10 .8 normal Not Available [address], [address], 03/16/2023 18:51:05 03/07/20 23 03/16/2023 CBC (INCL UDES DIFF/ PLT) red blood cell count 4.90 xin on/uL 4.20-5 .80 normal Not Available [address] [place], [address], 03/16/2023 18:51:05 03/07/20 23 03/16/2023 CBC (INCL UDES DIFF/ PLT) hemoglobin 15.3 g/dL 13.2-1 7.1 normal Not Available [facility] [address], [address], 03/16/2023 18:51:05 03/07/20 23 03/16/2023 CBC (INCL UDES DIFF/ PLT) hematocrit 45.2 % 38.5-5 0.0 normal Not Available [facility] [address], [address], 03/16/2023 18:51:05 03/07/20 23 03/16/2023 CBC (INCL UDES DIFF/ PLT) MCV 92.2 fL 80.0-1 00.0 normal Not Available [address], [address], 03/16/2023 18:51:05 03/07/20 23 03/16/2023 CBC (INCL UDES DIFF/ PLT) MCH 31.2 pg 27.0-3 3.0 normal Not Available [facility] [address], [address], 03/16/2023 18:51:05 03/07/20 23 03/16/2023 CBC (INCL UDES DIFF/ PLT) MCHC 33.8 g/dL 32.0-3 6.0 normal Not Available [facility] [address], [address], 03/16/2023 18:51:05 03/07/20 23 03/16/2023 CBC (INCL UDES DIFF/ PLT) RDW 12.9 % 11.0-1 5.0 normal Not Available [facility] [address], [address], 03/16/2023 18:51:05 03/07/20 23 03/16/2023 CBC (INCL UDES DIFF/ PLT) platelet count 176 thous and/u L 140-40 0 normal Not Available [address], [address], 03/16/2023 18:51:05 03/07/20 23 03/16/2023 CBC (INCL UDES DIFF/ PLT) MPV 11.5 fL 7.5-12 .5 normal Not Available [address], [address], 03/16/2023 18:51:05 03/07/20 23 03/16/2023 CBC (INCL UDES DIFF/ PLT) absolute neutrophils 3866 cells /uL 1500-7 800 normal Not Available [address], [address], 03/16/2023 18:51:05 03/07/20 23 03/16/2023 CBC (INCL UDES DIFF/ PLT) absolute lymphocytes 2534 cells /uL 850-39 00 normal Not Available [address], [address], 03/16/2023 18:51:05 03/07/20 23 03/16/2023 CBC (INCL UDES DIFF/ PLT) absolute monocytes 518 cells /uL 200-95 0 normal Not Available [address], [address], 03/16/2023 18:51:05 03/07/20 23 03/16/2023 CBC (INCL UDES DIFF/ PLT) absolute eosinophils 238 cells /uL 15-500 normal Not Available [address], [address], 03/16/2023 18:51:05 03/07/20 23 03/16/2023 CBC (INCL UDES DIFF/ PLT) absolute basophils 43 cells /uL 0-200 normal Not Available [address], [address], 03/16/2023 18:51:05 03/07/20 23 03/16/2023 CBC (INCL UDES DIFF/ PLT) neutrophils 53.7 % normal Not Available [facility] [address], [address], 03/16/2023 18:51:05 03/07/20 23 03/16/2023 CBC (INCL UDES DIFF/ PLT) lymphocytes 35.2 % normal Not Available [facility] [address], [address], 03/16/2023 18:51:05 03/07/20 23 03/16/2023 CBC (INCL UDES DIFF/ PLT) monocytes 7.2 % normal Not Available [facility] [address], [address], 03/16/2023 18:51:05 03/07/20 23 03/16/2023 CBC (INCL UDES DIFF/ PLT) eosinophils 3.3 % normal Not Available [facility] [address], [address], 03/16/2023 18:51:05 03/07/20 23 03/16/2023 CBC (INCL UDES DIFF/ PLT) basophils 0.6 % normal Not Available [address], [address], 03/16/2023 18:51:05 03/07/20 23 03/16/2023 HERED ITARY HEMOC HROMA TOSIS DNA MUT hereditary hemochromato sis DNA mut SEE BELOW RESUL T: POSIT CLIFFORD FOR ONE HFE GENE PATHO GENIC VARIA NT: H63D (HETE ROZYG OTE) Inter preta tion: One copy of the H63D patho genic varia nt in the HFE gene was detec bela. This patie nt is negat clifford for the C282Y patho genic varia nt. In the absen ce of evide nce of iron overl oad, this resul t most likel y indic ates that this indiv idual is an HFE blake er. This resul t reduc es the likel ihood of hered itary hemoc hroma tosis (HH). Howev er, it does not rule out the prese nce of other patho genic varia nts withi n the HFE gene or a diagn osis of HH. The risk of this indiv idual to carry an HFE patho genic varia nt other than those teste d in this assay depen ds great ly on famil y and clini rosalio histo ry as well as ethni city. This assay does not test for other prima ry or secon christopher iron overl oad disor ders. Consi manuel julissa ic couns eling and DNA testi ng for at-ri sk famil y membe rs. Labor atory resul ts and submi tted clini rosalio infor matio n revie wed by Raphael cisse, Ph.D. , FAC , MBS .. DETAI LED ASSAY INFOR MATIO N: Hered itary hemoc hroma tosis (HH) is an autos omal reces sive disor manuel of iron metab olism that can resul t in iron overl oad and poten tial organ failu re. It is one of the most commo n julissa ic disor ders in indiv idual s of Europ yashira-C aucas hannah ances try, with an estim ated blake er frequ ency of 10%. HH is cause d by patho genic varia nts in the HFE gene. Most indiv idual s with HH (60-9 0%) are homoz ygous for the C282Y patho genic varia nt. A small er perce ntage of affec bela indiv idual s are eithe r compo und heter ozygo us for the C282Y and H63D patho genic varia nts (3%-8 %), or homoz ygous for the H63D patho genic varia nt (appr oxima tely 1%). METHO DOLOG Y: This assay detec ts two patho genic varia nts in the HFE gene, C282Y ([place] [address] 0.2: c.845 G>A, p.Cys 282Ty r) and H63D ([place] [address] 0.2: c.187 C>G, p.His 63Asp ), that are commo nly assoc iated with HH. These varia nts are detec bela by multi plex- polym erase chain react ion (PCR) ampli ficat ion, follo wed by restr ictio n enzym e diges tion and capil chloe elect ropho resis . LIMIT ATION S: This assay does not detec t other patho genic varia nts in the HFE gene that may be assoc iated with HH. Altho ugh rare, false posit clifford or false negat clifford resul ts may occur . All resul ts shoul d be inter prete d in the pradeep xt of clini rosalio findi ngs, relev ant histo ry, and other labor atory data. Healt h care provi derella, nicole e conta ct your local [facility]' julissa ic couns elor or call -GENE INFO ( [phone] ) for steve tance with the inter preta tion of these resul ts. This test was devel oped and its carlton tical perfo rmanc e edda cteri stics have been deter mined by [facility] vin[facility] . It has not been clear ed or appro bell by FDA. This assay has been valid ated pursu ant to the CLIA regul ation s and is used for clini rosalio purpo ses. For more infor nicole herzog e refer to http: //[facility] catleonard n.que stdia gnost ics.c om/fa q/hem ochro powers is. (This link is being provi ded for infor matio nal/e ducat ional purpo ses only. ) Revie wed and roxanne d by Labor atory resul ts and submi tted clini rosalio infor matio n revie wed by Raphael cisse, Ph.D. , [facility] , [employer] ., Roxanne d on 03/16 at 15:30 Not Available [facility] [address] [address], [place], [address], 03/16/2023 18:51:06 08/20/20 21 08/19/2021 kirstie mckeon am, routi ne ECG, 12 leads min No observ ation record ed. [id number] Not Available 11/12/2022 03:05:03 Result Notes None recorded. Problems Name Problem SNOMED Code Status Onset Date Resolution Date Notes Provider Name and Address Organization Details Recorded Time Benign hypertension 57483829 Active 2018 Not Available [facility] 3 02:52:00 Type 2 diabetes mellitus without complication 087222613 Active 2020 Not Available [facility] 3 02:52:00 Serum ferritin above reference range 349464662 Active 2021 Not Available [facility] 3 02:52:01 Hypothyroidis m 07462165 Active 2018 Not Available [facility] 3 02:52:01 Hyperlipidemi a 80568178 Active 2018 Not Available [facility] 3 02:52:01 Gout 29145407 Active 2020 Not Available [facility] 3 02:52:01 Candidiasis of skin 70994063 Active 2022 PARAS Pi[address], [address], [address] , [employer] [facility] [employer] 3 15:59:53 Loose skin folds, abdominal wall 859950527 Active 2022 PARAS Piña [address], [place], [address] , [employer] [facility] [employer] 3 15:59:59 Problem Notes None recorded. Procedures Surgical History Date Name Laterality Status Provider Name and Address Organization Details Recorded Time 11/11/19 laparoscopic sleeve gastrectomy completed Not Available [facility] 11/12/2022 02:44:04 Imaging Results Imaging Date Name Status LastModified by Organiz ation Details LastModified Time 08/19/2021 electrocardi ogram, routine ECG, 12 leads min completed [id number] Information not available 11/12/2022 03:05:03 Procedure Notes None recorded. Medical Equipment None Reported. Allergies No known drug allergies Medications Name Sig Start Date Stop Date Status Note LastModified by Organization Details LastModified Time furosemide 40 mg tablet TAKE 1 TABLET DAILY 2022 active Not Available Not Available Not Avai lable atorvastati n 40 mg tablet TAKE 1 TABLET DAILY active Not Available Not Available No t Available sulfamethox azole 800 mg-trimetho prim 160 mg tablet TAKE 2 TABLETS BY MOUTH TWICE DAILY 12/20 completed Not Available Not Available Not Available amoxicillin 875 mg tablet 05/25 completed Not Available Not Available Not Available Synthroid 25 mcg tablet 04/07 completed Not Available Not Available Not Available levothyroxi ne 50 mcg tablet TAKE 1 TABLET DAILY active Not Available Not Available No t Available cephalexin 500 mg capsule TAKE 1 CAPSULE BY MOUTH FOUR TIMES DAILY FOR 5 DAYS 12/20 completed Not Available Not Available Not Available lisinopril 10 mg tablet TAKE 1 TABLET DAILY active Not Available Not Available No t Available omeprazole 20 mg capsule,del ayed release 01/31 completed Not Available Not Available Not Available allopurinol 300 mg tablet TAKE 1 TABLET DAILY 01/30 completed Not Available Not Available Not Available levofloxaci n 750 mg tablet 03/21 completed Not Available Not Available Not Available scopolamine 1 mg over 3 days transdermal patch APPLY PATCH TO SKIN 24 HOURS BEFORE SURGERY 01/31 completed Not Available Not Available Not Available ondansetron 4 mg disintegrat ing tablet 01/31 completed Not Available Not Available Not Available metformin ER 500 mg tablet,exte nded release 24 hr TAKE 2 TABLETS DAILY 01/30 completed Not Available Not Available Not Available Klor-Con M20 mEq tablet,exte nded release TAKE 1 TABLET DAILY active Not Available Not Available No t Available hydrocodone 7.5 mg-acetamin ophen 325 mg/15 mL oral solution 01/31 completed Not Available Not Available Not Available eszopiclone 2 mg tablet TAKE 1 TABLET WITH YOU TO SLEEP STUDY 01/31 completed Not Available Not Available Not Available [facility] 100,000 unit/gram topical powder APPLY TO THE AFFECTED AREA(S) of abdomen BY TOPICAL ROUTE 2 TIMES PER DAY active Not Available Not Available No t Available Vitals Date Recorded Body height Body temperature Body mass index (BMI) Body weight Respiratory rate Oxygen saturation Oxygen saturation in Arterial blood by Pulse oximetry Heart rate Systolic blood pressure Diastolic blood pressure Provider Name and Address Organization Details Last Updated DateTime 3 170.18 cm 97.7 [degF] 47.5 kg/m2 169470. 49 g 16 /min 99 % 99 % 94 /min 122 mm[Hg] 80 mm[Hg] BO Goode [place] [facility] [place] [employer] [facility] 3 15:25:25 Date Recorded Body mass index (BMI) Body mass index (BMI) Body mass index (BMI) Body height Body height Body height Body height Oxygen saturation Oxygen saturation in Arterial blood by Pulse oximetry Oxygen saturation Oxygen saturation in Arterial blood by Pulse oximetry Oxygen saturation Oxygen saturation in Arterial blood by Pulse oximetry Oxygen saturation Oxygen saturation in Arterial blood by Pulse oximetry Heart rate Heart rate Heart rate Heart rate Respiratory rate Body temperature Body temperature Body temperature Body temperature Body weight Body weight Body weight Systolic blood pressure Diastolic blood pressure Systolic blood pressure Diastolic blood pressure Systolic blood pressure Diastolic blood pressure Systolic blood pressure Diastolic blood pressure Provider Name and Address Organization Details Last Updated DateTime 3 62.3 kg/m2 58.7 kg/m2 48.6 kg/m2 170.18 cm 170.18 cm 170.18 cm 170.18 cm 99 % 99 % 98 % 98 % 98 % 98 % 98 % 98 % 99 /min 120 /min 102 /min 75 /min 16 /min 98.2 [degF] 97.8 [degF] 96.9 [degF] 98.6 [degF] 047641. 76 g 261338. 7 g 952549. 07 g 130 mm[Hg] 80 mm[Hg] 130 mm[Hg] 80 mm[Hg] 122 mm[Hg] 72 mm[Hg] 128 mm[Hg] 82 mm[Hg] Not Available [facility] 3 02:45:12 Social History Question Answer Notes LastModified by Organizat ion Details LastModified Time Tobacco Smoking Status Never Smoker Not Available [employer] 11/12/2022 02:28:29 What Is Your Level Of Alcohol Consumption? Moderate [id number] Information not available 11/12/2022 What Is Your Level Of Caffeine Consumption? Moderate [id number] Information not available 11/12/2022 How Much Tobacco Do You Chew? None [id number].[id number] Information not available 11/12/2022 In The 14 Days Before Symptom Onset, Have You Had Close Contact With A Laboratory-confir med COVID-19 While That Case Was Ill? No [id number] Information not available 11/12/2022 In The 14 Days Before Symptom Onset, Have You Had Close Contact With A Person Who Is Under Investigation For COVID-19 While That Person Was Ill? No [id number] Information not available 11/12/2022 Are You Currently Employed? Yes [email or web address] Information not available 01/29/2023 What Type Of Diet Are You Following? REGULAR [id number] Information not available 11/12/2022 Which Illicit Or Recreational Drugs Have You Used? None [id number].[id number] 6065 Information not available 11/12/2022 Do You Or Have You Ever Used E-cigarettes Or Vape? 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 No MIGRATION.124939 9404 Information not available 11/12/2022 Are There Any Guns Present In Your Home? No [id number].[id number] 9100 Information not available 11/12/2022 Do You Use Insect Repellent Routinely? No [email or web address] Information not available 01/29/2023 What Is Your Relationship Status? [id number].[id number] 0266 Information not available 11/12/2022 Do You Use Your Seat Belt Or Car Seat Routinely? Yes [id number].[id number] 6582 Information not available 11/12/2022 Do You Have Smoke And Carbon Monoxide Detectors In Your Home? Yes MIGRATION.982104 3764 Information not available 11/12/2022 At What Age Did You Start Smoking Tobacco? 2 [id number].536593 6721 Information not available 11/12/2022 Do You Or Have You Ever Used Smokeless Tobacco? Never Used Smokeless Tobacco MIGRATION.[id number] 7373 Information not available 11/12/2022 How Much Tobacco Do You Smoke? No MIGRATION.627110 9667 Information not available 11/12/2022 Do You Use Any Illicit Or Recreational Drugs? No MIGRATION.594777 8572 Information not available 11/12/2022 Do You Use Sunscreen Routinely? Yes [email or web address] Information not available 01/29/2023 How Many Years Have You Smoked Tobacco? 0 MIGRATION.216777 4912 Information not available 11/12/2022 Have You Recently Traveled Abroad? No MIGRATION.560050 8076 Information not available 11/12/2022 Do You Have Any Dietary Restrictions? No MIGRATION.015707 9650 Information not available 11/12/2022 Do You Or Have You Ever Used Any Other Forms Of Tobacco Or Nicotine? No MIGRATION.300833 0705 Information not available 11/12/2022 Sex: Unknown Functional Status Question Answer Note LastModified by Organizat ion Details LastModified Time What is your exercise level? Occasional [id number] Information not available 11/12/2022 Mental Status None recorded. Family History Relationship Description Onset Age of this Age Resolved Age Notes LastModified by Organization Details LastModified Time Father No current problems or disability [id number] Not available 11/12/2022 02:44:06 Father General health good [id number] Not available 11/12/2022 02:44:06 Mother No current problems or disability [id number] Not available 11/12/2022 02:44:06 Medical History Condition Response DIABETES, TYPE Y HYPERTENSION Y HIGH CHOLESTEROL / HYPERLIPIDEMIA Y EDEMA Y HYPOTHYROIDISM Y GOUT Y Past Encounters Encounter ID Performer Location Encounter Start Date Encounter Closed Date Diagnosis/Indication Diagnosis SNOMED-CT Code Diagnosis ICD10 Code Diagnosis Note [id number] [facility] [address] [address], [address] [place] [id number] 4 12/21/2020 00:00:00 01/11/2021 12:27:51 [id number] [facility] [address] [address], [address] [place] [address] 4 06/28/2021 00:00:00 07/14/2021 10:57:17 [id number] [facility] [address] [address], [address] [place] [id number] 4 01/31/2022 00:00:00 02/10/2022 18:39:49 [id number] [facility] [address] [address], [address] [place] [id number] 4 08/01/2022 00:00:00 08/12/2022 23:03:33 [id number] PARAS Piña [facility] [place] [address] [place] [address] 01/30/2023 15:16:55 01/30/2023 16:05:58 Adult health examination 835000999 Z00.01 well exam completed Benign hypertension 1072 5009 I10 stable on lisinopril 10mg daily. Hyperlipidemia 70599703 E78.5 on statin therapy. stable. repeat lab in may Hypothyroidism 38628705 E03.9 stable on supplement . repeat labs in may Type 2 rafaela betes mellitus without complication 147521069 E11.9 5.8% on labs. very stable. excellent control overall. repeat labs in may. Serum ferr itin above reference range 007998996 R77.8 noted on labs 747, abnormally high and pt had orders to repeat and screen for hemachroma tosis, still to get these. Gout 17645410 M10.9 stable. following uric acid. no gout flares recent. Long-term drug therapy 790634844 Z79.899 CBC, CMP and UA due in may Candidiasis of skin 4988 3006 B37.2 present in the skin folds of abdomen. pt has nystatin powder to use Loose skin folds, abdominal wall 277175986 R23.8 noted. History of bariatric surgical procedure 515015438 Z98.84 all post bariatric surgery vitamin and iron studies ordered for may. Screening for malignant neoplasm of prostate 678465673 Z12.5 PSA due in may. Health Concerns Section Related Observation LastModified by Organization Detai ls LastModified Time None Recorded Concern Status LastModified by Organization Details LastModified Time None Recorded Advance Directives Directive None Recorded Payers Encounter Date Sequence Insurance Name Policy Number Policy Thomas Covered Member ID Thomas Member ID Guarantor Name 01/30/2023 1 [facility] [id number] Rafael Gordillo [id number] Rafael Gordillo Notes Date Note Type Note Provider Name and Address Organization Details Recorded Time 021 text/ht ml DiabetesReported bypatient.Control:usually well controlled; improved since last visit; normal range of home blood sugars (in the low 100s) Compliance:compliant with medications; compliant with follow-up visits; compliant with diet; compliant with home glucose monitoring Self Care:monitoring glucose Context:seeing eye doctor regularly; checking feet regularly Associated Symptoms:no weight gain; no weight loss; no dizziness; no sweats; no headaches; no confusion; no increased thirst; no increased appetite; no increased urination; no blurred vision; no numbness of feet; no calluses on feet; no fatigue; no blurred vision; no paresthesiasHyperlipidemiaReported bypatient.Control:usually well controlled; improving; at goal Compliance:compliant; compliant with diet; exercises Complications:no coronary artery disease; no peripheral artery disease; no cardiovascular diseaseHypertensionReported bypatient.Onset/Timing:better Self Care:not under emotional stress Associated Symptoms:no shortness of breath; no fatigue; no palpitations; no decline in exercise capacity; no snoringHypothyroidReported bypatient.Associated Symptoms:no weakness; no lightheadedness; no fatigue; no cold intolerance; no constipation; no weight gain; no involuntary weight loss; normal mood; no menstrual irregularity; no pain; no dry/coarse skin; no edema; no deepening of the voice; no hoarseness; no goiter; no mass detected; no chest pain; no palpitations Treatment:taking medication as directed Not Available [facility] 01/11/2021 12:27:51 021 text/ht ml DiabetesReported bypatient.Duration:chronic Control:usually well controlled; treated with diet and oral medications; hemoglobin A1C has been less than 7 Compliance:compliant with medications; compliant with follow-up visits; compliant with diet Context:seeing eye doctor regularly; checking feet regularly Associated Symptoms:weight loss ( lbs)HyperlipidemiaReported bypatient.Control:usually well controlled; improving; at goal Compliance:compliant; compliant with diet; exercises Complications:no coronary artery disease; no peripheral artery disease; no cardiovascular diseaseHypertensionReported bypatient.Onset/Timing:better Self Care:not under emotional stress Associated Symptoms:no shortness of breath; no fatigue; no palpitations; no decline in exercise capacity; no snoringHypothyroidismReported bypatient.Onset/Timing:better Context/Risk:normal thyroid levels; no history of head or neck radiation during childhood; no history of thyroid disease; no history of hypothyroidism; no history of hyperthyroidism; no excess iron exposure Exercisegets exercise Associated Symptoms:no cold intolerance; no heat intolerance; no weight loss; no weight gain; no double vision; no dry eyes; no hoarseness; no difficulty swallowing; no neck masses; no deepening of the voice; no fast heart rate; no increased blood pressure; no palpitations; no chest pain; no chest tightess or pressure; no constipation; no diarrhea; no vomiting; no decreased appetite; no loose stools; no irregular menstrual periods; no excessive sweating; no joint pain; no numbness; no tingling of the hands or feet; no dry skin; no tremor; no nervousness; no anxiety; no depression; no fatigue; no sleep difficulties; no skin changes; no hair changes Not Available [facility] 07/14/2021 10:57:17 022 text/ht ml DiabetesReported bypatient.Duration:chronic Control:usually well controlled; treated with diet only; he stopped taking the metformin since 11/09/21 Compliance:compliant with medications; compliant with follow-up visits; compliant with diet;noncompliant with home glucose monitoring Self Care:not monitoring home glucose Context:seeing eye doctor regularly; checking feet regularly;not taking aspirin daily Associated Symptoms:no weight gain; no weight loss; no dizziness; no sweats; no headaches; no confusion; no increased thirst; no increased appetite; no increased urination; no blurred vision; no numbness of feet; no calluses on feet; no fatigue; no blurred vision; no paresthesias Chronic Complications:hypertension: Yes; hyperlipidemia: YesGeneric HPI TemplateReported bypatient.Notes:pt is recent gastric sleeve surgery and having terrific weight loss results thus far. He is feeling really good. no complaints.HyperlipidemiaReported bypatient.Duration:chronic Control:usually well controlled Current Therapy:currently taking: (atorvastatin 40mg) Compliance:compliant; compliant with diet; exercises Complications:no coronary artery disease; no peripheral artery disease; no cardiovascular disease Risk Factors:diabetes;hypertensionHyperte nsionReported bypatient.Duration:has noted for years Onset/Timing:better Alleviating Factors:medication Self Care:not under emotional stress Associated Symptoms:no shortness of breath; no fatigue; no palpitations; no decline in exercise capacity; no snoringHypothyroidismReported bypatient.Quality:not changing Duration:constant Onset/Timing:still present Context/Risk:normal thyroid levels; no history of head or neck radiation during childhood; no history of thyroid disease; no history of hyperthyroidism; no excess iron exposure;history of hypothyroidism Modifying Factors:medication Exercisegets exercise Associated Symptoms:no cold intolerance; no heat intolerance; no weight loss; no weight gain; no double vision; no dry eyes; no hoarseness; no difficulty swallowing; no neck masses; no deepening of the voice; no fast heart rate; no increased blood pressure; no palpitations; no chest pain; no chest tightess or pressure; no constipation; no diarrhea; no vomiting; no decreased appetite; no loose stools; no irregular menstrual periods; no excessive sweating; no joint pain; no numbness; no tingling of the hands or feet; no dry skin; no tremor; no nervousness; no anxiety; no depression; no fatigue; no sleep difficulties; no skin changes; no hair changes Not Available [facility] [employer] 02/10/2022 18:39:49 022 text/ht ml DiabetesReported bypatient.Duration:chronic Control:usually well controlled; treated with diet only; he stopped taking the metformin since 11/09/21 Compliance:compliant with medications; compliant with follow-up visits; compliant with diet;noncompliant with home glucose monitoring Self Care:not monitoring home glucose Context:seeing eye doctor regularly; checking feet regularly;not taking aspirin daily Associated Symptoms:no weight gain; no weight loss; no dizziness; no sweats; no headaches; no confusion; no increased thirst; no increased appetite; no increased urination; no blurred vision; no numbness of feet; no calluses on feet; no fatigue; no blurred vision; no paresthesias Chronic Complications:hypertension: Yes; hyperlipidemia: YesHyperlipidemiaReported bypatient.Duration:chronic Control:usually well controlled Current Therapy:currently taking: (atorvastatin 40mg) Compliance:compliant; compliant with diet; exercises Complications:no coronary artery disease; no peripheral artery disease; no cardiovascular disease Risk Factors:diabetes;hypertensionHyperte nsionReported bypatient.Duration:has noted for years Onset/Timing:better Alleviating Factors:medication Self Care:not under emotional stress Associated Symptoms:no shortness of breath; no fatigue; no palpitations; no decline in exercise capacity; no snoringHypothyroidismReported bypatient.Onset/Timing:better Context/Risk:normal thyroid levels; no history of head or neck radiation during childhood; no history of thyroid disease; no history of hypothyroidism; no history of hyperthyroidism; no excess iron exposure Exercisegets exercise Associated Symptoms:no cold intolerance; no heat intolerance; no weight loss; no weight gain; no double vision; no dry eyes; no hoarseness; no difficulty swallowing; no neck masses; no deepening of the voice; no fast heart rate; no increased blood pressure; no palpitations; no chest pain; no chest tightess or pressure; no constipation; no diarrhea; no vomiting; no decreased appetite; no loose stools; no irregular menstrual periods; no excessive sweating; no joint pain; no numbness; no tingling of the hands or feet; no dry skin; no tremor; no nervousness; no anxiety; no depression; no fatigue; no sleep difficulties; no skin changes; no hair changes Not Available [facility] 08/12/2022 23:03:33 023 text/ht ml DiabetesReported bypatient.Duration:chronic Control:usually well controlled; treated with diet and oral medications Compliance:compliant with medications; compliant with follow-up visits; compliant with diet; compliant with home glucose monitoring; had eye doctor visit in last year;has not had dietitian visit in last year;does not wear a medic alert bracelet or necklace;does not keep rapid-acting carbohydrate in car Self Care:not monitoring home glucose Context:normal range of home blood sugars (in the low 100s); seeing eye doctor regularly; checking feet regularly;not taking aspirin daily Associated Symptoms:no weight gain; no weight loss; no dizziness; no sweats; no headaches; no confusion; no increased thirst; no increased appetite; no increased urination; no blurred vision; no numbness of feet; no calluses on feet; no coronary artery disease; no kidney disease; no peripheral vascular disease; no diabetic retinopathy; no diabetic neuropathyHyperlipidemiaReported bypatient.Duration:chronic Control:usually well controlled Current Therapy:currently taking: (atorvastatin 40mg) Compliance:compliant; compliant with diet; exercises Complications:no coronary artery disease; no peripheral artery disease; no cardiovascular disease Risk Factors:diabetes;hypertensionHyperte nsionReported bypatient.Duration:has noted for years Onset/Timing:better Alleviating Factors:medication Associated Symptoms:no shortness of breath; no fatigue; no palpitations; no decline in exercise capacity; no snoringHypothyroidismReported bypatient.Quality:not changing Duration:constant Onset/Timing:still present Context/Risk:normal thyroid levels; no history of head or neck radiation during childhood; no history of thyroid disease; no history of hypothyroidism; no history of hyperthyroidism; no excess iron exposure Modifying Factors:medication Exercisegets exercise Associated Symptoms:no cold intolerance; no heat intolerance; no weight loss; no weight gain; no double vision; no dry eyes; no hoarseness; no difficulty swallowing; no neck masses; no deepening of the voice; no fast heart rate; no increased blood pressure; no palpitations; no chest pain; no chest tightess or pressure; no constipation; no diarrhea; no vomiting; no decreased appetite; no loose stools; no irregular menstrual periods; no excessive sweating; no joint pain; no numbness; no tingling of the hands or feet; no dry skin; no tremor; no nervousness; no anxiety; no depression; no fatigue; no sleep difficulties; no skin changes; no hair changes WellnessExcellent weight loss s/p gastric sleeve 2021. Pt is feeling good. Does have some rash underneath the panus that continues be problematic and will not resolve. no open sores. PARAS Piña [address] [facility], [facility] [address], [place], [address], [facility] 02/09/2023 14:25:30
--- OUTSIDE RECORDS SUMMARY | 2024-10-21 16:49 | XMS_ITS | Clinical Summary ---
Author Organization [facility] Address [address] [place] [address] Care Team Providers Care Tank Hoop Bender Name Role Phone Demetrice Miller Primary Care Provider [phone] Allergies Active Allergy Reactions Criticality Noted Date Comments Nsaids (Non-Steroidal Anti-Inflammatory Drug) Other (See Comments) Low 11/29/2021 S/P laparoscopic sleeve gastrectomy on 11/11/21. Medications atorvastatin (LIPITOR) 40 mg tablet Take 1 Tablet by mouth daily at bedtime. 1 Active furosemide (LASIX) 40 mg tablet Take 1 Tablet by mouth daily at bedtime. 1 Active Synthroid 50 mcg tablet Take 1 Tablet by mouth daily. 1 Active lisinopriL (PRINIVIL) 10 mg tablet Take 1 Tablet by mouth daily at bedtime. 1 Active Klor-Con M20 20 mEq Extended Release tablet Take 1 Tablet by mouth daily at bedtime. 1 Active acetaminophen (TYLENOL ORAL) Take by mouth 1 time daily as needed. Active multivit-min/iron/ folic acid/K (BARIATRIC MULTIVITAMINS ORAL) Take by mouth 3 times daily. Active CALCIUM ORAL Take by mouth 2 times daily. Active Active Problems Problem Noted Date Diagnosed Date S/P bariatric surgery lap sleeve 11/11/21 022 History of tobacco use 05/16/2021 Gout 05/16/2021 Hypothyroidism 05/16/2021 Hyperlipidemia 05/16/2021 Morbid obesity with BMI of 60.0-69.9, adult 10/2020 BMI 60.0-69.9, adult 05/16/2021 HTN (hypertension), benign 05/16/2021 Type 2 diabetes mellitus without complication Family History Medical History Relation Name Comments Healthy Daughter 1 Healthy Daughter 2 Healthy Father Unknown Maternal Grandfather Unknown Maternal Grandmother Healthy Mother Cancer Paternal Grandfather Rafael Gordillo Healthy Paternal Grandmother Healthy Sister Relation Name Status Comments Daughter 1 Alive Daughter 2 Alive Father Alive Maternal Grandfather Maternal Grandmother Mother Alive Paternal Grandfather Rafael Gordillo Paternal Grandmother Alive Sister Alive Social History Tobacco Use Types Packs/Day Years Used Date Smoking Tobacco: Former Cigarettes Smokeless Tobacco: Never Alcohol Use Standard Drinks/Week Comments Not Currently 0 (1 standard drink = 0.6 oz pur e alcohol) Sex and Gender Information Value Date Recorded Sex Assigned at Not on file Legal Sex Male 11:47 AM CDT Gender Identity Not on file Sexual Orientation Not on file Last Filed Vital Signs Vital Sign Reading Time Taken Comments Blood Pressure 138/84 05/09/2022 9:41 AM CDT Pulse 63 05/09/2022 9:41 AM CDT Temperature 36.7 C (98.1 F) 11/12/2021 1:00 PM ASSORTER LAUNDRY Respiratory Rate 18 11/12/2021 11:0 8 AM ASSORTER LAUNDRY Oxygen Saturation 97% 05/09/2022 9:41 AM CDT Inhaled Oxygen Concentration - - Weight 130.5 kg (287 lb 9.6 oz) 05/09/2022 9:41 AM CDT Height 170.2 cm (5' 7 ) 05/09/2022 9:41 AM CDT Body Mass Index 45.04 05/09/2022 9:41 AM CDT Plan of Treatment Health Maintenance Due Date Last Done Comments DIABETES ANNUAL FOOT EXAM 12/10/1995 DIABETES ANNUAL RETINAL EXAM 12/10/1995 DIABETES HBA1C Q 6 MONTHS 12/10/1995 DIABETES MICROALBUMIN ANNUAL SCREEN 12/10/1995 LDL CHOLESTEROL ANNUAL 12/10/1995 DTAP/TDAP/TD VACCINES (1 - Tdap) 1996 HEPATITIS B VACCINES (1 of 3 - 19+ 3-dose series) 1996 COLORECTAL SCREENING 2022 Colorectal Cancer Screening 2022 FIT-DNA Q 3 years 2022 FIT/FOBT Q 1 year 2022 Flex Sig/CT Colonography Q 5 years 2022 INFLUENZA VACCINE (#1) 2024 COVID-19 Vaccine (2023-2 5 season) 2024 05/07/2021, 04/08/2021 HPV VACCINES Aged Out No longer eligi ble based on patient's age to complete this topic Medical Devices Implanted Type Area Drug Room Operator Device Identifier Shelf Expiration Date Model / Serial / Lot Clip Crtg Med/Lrg 1112 - [id number] Implanted:Qty: 1 on 11/11/2021 by Louise Lozano MD at [facility] Clip N/A: Abdomen [employer] [id number] 07/11/2026 1112 / / [id number] Insurance Collecta OA PLUS [employer] Advance Directives For more information, please contact: [phone] * Full Code (Latest Code Status on File) Date Activated Date Inactivated Comments 11/11/2021 10:30 AM 11/12/2021 6:42 PM Care Teams Tank Hoop Bender Relationship Specialty Start Date End Date Demetrice Miller PA PCP - General Physician Chief Technology Officer 05/15/21
--- OUTSIDE RECORDS SUMMARY | 2024-10-21 16:49 | XMS_ITS | Patient Health Record ---
Author Organization [facility] Address [address] [place] [address] Care Team Providers Care Hand Scudder Name Role Phone Guero Lyons Primary Care Provider Reason For Referral No Information Immunizations Vaccine Route Administration Date Status Comme nts COVID-19 Moderna 1ST IM Intramuscular 04/08/2021 Administered COVID-19 Moderna 2nd IM Intramuscular 05/07/2021 Administered Consent reviewe d and signed. EUA date 08/2020. Patient tolerated well. Plan Of Treatment No Information
--- OUTSIDE RECORDS SUMMARY | 2024-10-21 16:49 | XMS_ITS | Continuity of Care Document ---
Author Organization [facility] Address [id number] [place] [address] Phone Care Team Providers Care Csr Retail Name Role Phone Leonid Rodriguez MD Unavailable Unavailable Advance Directives Directive Yes / No Effective Date File Name No Information Encounters Encounter Description Practice Location Reason(s) For Visit Diagnoses Date Provider Providers [facility] [address] [place], [place], [address], tel:[phone] [facility] No Information 0 2-200 7 Michael Jaquez. [address], [place] [address], [place], [place], [address] , [place]. tel: [phone] [employer], [address], [place], [place], [address], tel:[phone] [facility] MORBID OBESITYMALAISE AND FATIGUE NEC 0 1-200 7 Michael [address]. [address], [address], [id number] , [place]. tel: [phone] [employer], [address], [place], [place], [address], tel:[phone] [facility] 1 8-200 7 Michael Jaquez[address], [place] [address], [place], [place], [address] , [place]. tel: [phone] [employer], [address], [place], [place], [address], tel:[phone] [facility] N[facility] Beto-0 5-200 0 Michael Jaquez. [address], [facility] [address], [place], [place], [address] , [place]. tel: [phone] Family History Family Member Type Diagnosis Age At Onset No Information Payers Payer name Insurance type Covered republican ID Authoriza tion(s) No Information Social History Type Description Quantity Date Captured Comments Sex Male Smoking Status No Information Chief Complaint And Reason For Visit No Information Reason For Referral Reason For Referral No Information History Of Present Illness Encounter Date Complaint History Of Prese nt Illness No Information Functional Status Date Functional Assessmen t No Information Instructions Date Instruction Additional Infor mation No Information Assessments Type Assessment Date No Information Patient Care Teams Name Effective Dates (start - stop) Status Members No Information
[2024-10-21 18:11] LABS: Estimated Glomerular Filt Rate > 60
== END 2024-10-21 16:43 | disposition home or self-care (01) ==
PROVIDERS: Visit Provider Physician Assistant
DX: I26.02 Saddle embolus of pulmonary artery with acute cor pulmonale (principal)
CPT/HCPCS: 71275; Q9967

== ENCOUNTER 2024-10-21 18:28 | Emergency (ER) | payer OTHER, SELFPAY ==
[2024-10-21] VITALS (9 sets, daily range): BP systolic 121–133; BP diastolic 71–88; PULSE 90–102; RESP 14–20; TEMP 36.7; O2SAT 96–100
--- NOTE | ~2024-10-21 | CT_ITS ---
History: Possible tPA candidate for pulmonary embolus PROCEDURE: CT head without contrast. COMPARISON: None TECHNIQUE: Axial imaging of the head performed from the skull base to the vertex without IV contrast. Sagittal a nd coronal reformations obtained. DLP: 681 mGy-cm FINDINGS: The ventricles are normal in size, shape and position. There is no mass, mass effect or midline shift. There is no abnormal extra-axial fluid collection or intracranial hemorrhage. Visualized paranasal sinuses are clear. The mastoid air cells are well aerated. No acute displaced fractures within the overlying cranium. Impression: No acute intracranial hemorrhage or suspicious mass effect. Reviewed, dictated and finalized at location A. ITECT MANAGER Impression: No acute intracranial hemorrhage or suspicious mass effect.
--- NOTE | ~2024-10-21 | XR_ITS ---
CHEST RADIOGRAPH CLINICAL HISTORY: Hypoxia . COMPARISON: Reference is made to a CTA of the chest performed approximately 1 hour earlier TECHNIQUE: Single portable view of the chest. FINDINGS The cardiomediastinal silhouette is unremarkable. The lungs are clear. Visualized osseous structures and soft tissues are unremarkable. IMPRESSION: No focal infiltrate or effusion. Reviewed, dictated and finalized at location A. CTOR OF ADULT EPILEPSY
--- OUTSIDE RECORDS SUMMARY | 2024-10-21 18:31 | XMS_ITS | Continuity of Care Document ---
Author Organization [facility] Address [id number] [place] [address] Phone Care Team Providers Care Crumb Packer Name Role Phone Leonid Rodriguez MD Unavailable Unavailable Advance Directives Directive Yes / No Effective Date File Name No Information Encounters Encounter Description Practice Location Reason(s) For Visit Diagnoses Date Provider Providers [facility]ied on [facility] [address], [place], [place], [address], tel:[phone] [facility] No Information 0 2-200 7 Michael Jaquez. [address], [place] [address], [place], [place], [address] , [place]. tel: [phone] [facility], [address], [place], [place], [address], tel:[phone] [facility] MORBID OBESITYMALAISE AND FATIGUE NEC 0 1-200 7 [address], [address], [address] , [place]. tel: [phone] [facility] [facility], [address], [place], [place], [address], tel:[phone] [facility] NOS 1 8-200 7 [address], [place] [address], [place], [place], [address] , [place]. tel: [phone] [facility], [address], [place], [place], [address], tel:[phone] [place] [facility] NOS Beto-0 5-200 0 Michael Jaquez. [address], [facility] [address], [place], [place], [address] , [place]. tel: [phone] Family History Family Member Type Diagnosis Age At Onset No Information Payers Payer name Insurance type Covered libertarian ID Authoriza tion(s) No Information Social History [...]
--- OUTSIDE RECORDS SUMMARY | 2024-10-21 18:31 | XMS_ITS | Clinical Summary ---
Author Organization [facility] Medical Office [facility] Address [address] [place] [address] Care Team Providers Care Eyelet Machine Operator Name Role Phone Demetrice Miller Primary Care Provider [phone] Allergies Active Allergy Reactions Criticality Noted Date [...] 36.7 C (98.1 F) 11/12/2021 1:00 PM ELASTIC YARN TWISTER HELPER Respiratory Rate 18 11/12/2021 11:0 8 AM ELASTIC YARN TWISTER HELPER Oxygen Saturation 97% 05/09/2022 9:41 AM CDT [...] this topic Medical Devices Implanted Type Area Bookmobile Driver Device Identifier Shelf Expiration Date Model / Serial / Lot Clip Crtg Med/Lrg 1112 - [id number] Implanted:Qty: 1 on 11/11/2021 by Louise Lozano MD at [facility] Clip N/A: Abdomen [employer] [id number] 07/11/2026 1112 / / [id number] Insurance [employer] OA PLUS RX EXPRESS SCRIPTS Express Advance Directives For more information, please contact: [phone] * Full Code (Latest Code Status on File) Date Activated Date Inactivated Comments 11/11/2021 10:30 AM 11/12/2021 6:42 PM Care Teams Eyelet Machine Operator Relationship Specialty Start Date End Date Demetrice Miller PA PCP - General Physician Mobile Manager 05/15/21
--- NOTE | 2024-10-21 18:58 | ECG_ITS ---
Test Date: 2024-10-21 19:17:30 Measurements Intervals [place] Rate: 97 P: 45 MD: 170 QRS: 41 QRSD: 80 T: 34 QT: 336 QTc: 427 Interpretive Statements SINUS RHYTHM DELAYED PRECORDIAL R/S TRANSITION BORDERLINE T WAVE ABNORMALITY- ANTERIOR LEADS BASELINE ARTIFACT- I, II, III, AVR, AVL, AVF BORDERLINE ECG No previous ECG available for comparison Electronically Signed On 10-22-2024 06:23:22 SHIFT STACKER by Mat Jessica D.O.
[2024-10-21 19:15] LABS: Basophils Percent Auto 0.4 % (0.2-1.2); Eosinophils Absolute Auto 0.3 K/mm3 (0-0.3); Eosinophils Percent Auto 2.4 % (0-4.4); Hematocrit 45.1 % (42.0-52.0); Hemoglobin 15.5 g/dL (14.0-18.0); Immature Granulocyte Absolute 0.03 K/mm3 (0.00-0.031); Immature Granulocyte Percent A 0.3 % (0-0.5); Lymphocytes Percent Auto 26.4 % (18.3-44.2); Mean Corpuscular HGB Conc 34.4 g/dl (32-36); Mean Corpuscular Hemoglobin 31.3 pg (26-34); Mean Corpuscular Volume 90.9 fl (80-100); Mean Platelet Volume 10.7 fl (7.4-10.4); Monocytes Absolute Auto 0.7 K/mm3 (0.1-0.6); Monocytes Percent Auto 6.8 % (2.6-8.5); Neutrophils Absolute Auto 6.5 K/mm3 (1.3-6.7); Neutrophils Percent Auto 63.7 % (45.5-73.1); Platelet Count Result 153 k/mm3 (150-375); Red Blood Count 4.96 M/mm3 (4.6-6.20); Red Cell Distribution Width 12.7 % (11.5-14.5); White Blood Count 10.2 K/mm3 (4.5-10.0)
--- OUTSIDE RECORDS SUMMARY | 2024-10-21 19:21 | XMS_ITS | Continuity of Care Document ---
Author Organization [facility] Address [address] [place] [address] Phone Care Team Providers Care Floor Coverings Installer Name Role Phone Leonid Rodriguez MD Unavailable Unavailable Advance Directives Directive Yes / No Effective Date File Name No Information Encounters Encounter Description Practice Location Reason(s) For Visit Diagnoses Date Provider Providers [facility] [address], [place], [place], [address], tel:[phone] [facility] No Information 0 2-200 7 Michael Jaquez. [address], [place] [address], [place], [place], [address] , [place]. tel: [phone] [employer], [address], [place], [place], [address], tel:[phone] [facility] MORBID OBESITYMALAISE AND FATIGUE NEC 0 1-200 [address], [address], [id number] , [place]. tel: [phone] [employer], [address], [place], [place], [address], tel:[phone] [facility] 1 8-200 [address], [place] [address], [place], [place], [address] , [place]. tel: [phone] [employer], [address], [place], [place], [address], tel:[phone] [facility] N[facility] Beto-0 5-200 0 Michael Jaquez. [address], [facility] [address], [place], [place], [address] , [place]. tel: [phone] Family History Family Member Type Diagnosis Age At Onset No Information Payers Payer name Insurance type Covered alliance party ID Authoriza tion(s) No Information Social History [...]
--- OUTSIDE RECORDS SUMMARY | 2024-10-21 19:21 | XMS_ITS | Clinical Summary ---
Author Organization [facility] Medical Office [facility] Address [address] [place] [address] Care Team Providers Care Lehr Tender Name Role Phone Demetrice Miller Primary Care Provider [phone] Allergies Active Allergy Reactions Criticality Noted Date [...] 36.7 C (98.1 F) 11/12/2021 1:00 PM THERMO PROCESSOR Respiratory Rate 18 11/12/2021 11:0 8 AM THERMO PROCESSOR Oxygen Saturation 97% 05/09/2022 9:41 AM CDT [...] this topic Medical Devices Implanted Type Area Ferry Terminal Supervisor Device Identifier Shelf Expiration Date Model / Serial / Lot Clip Crtg Med/Lrg 1112 - [id number] Implanted:Qty: 1 on 11/11/2021 by Louise Lozano MD at [facility] Clip N/A: Abdomen [employer] [id number] 07/11/2026 1112 / / [id number] Insurance [employer] OA PLUS RX EXPRESS SCRIP[employer] Express Advance Directives For more information, please contact: [phone] * Full Code (Latest Code Status on File) Date Activated Date Inactivated Comments 11/11/2021 10:30 AM 11/12/2021 6:42 PM Care Teams Lehr Tender Relationship Specialty Start Date End Date Demetrice Miller PA PCP - General Physician Supervisor Computer Operations 05/15/21
[2024-10-21 19:24] LABS: Lactic Acid Reflex 1.5 mmol/L (0.7-2.0)
[2024-10-21 19:25] LABS: Alanine Aminotransferase 28 U/L (6-50); Albumin Level 4.4 g/dL (3.5-5.1); Alkaline Phosphatase 70 U/L (38-126); Anion Gap 13 mmol/L (4-12); Aspartate Amino Transferase 29 U/L (17-59); Blood Urea Nitrogen 13 mg/dL (9-20); Calcium 9.1 mg/dL (8.4-10.2); Carbon Dioxide 20 mmol/L (22-30); Chloride 104 mmol/L (98-107); Estimated CRCL calculation 166 ml/min; Estimated Glomerular Filt Rate > 60; Glucose 113 mg/dL (65-110); Phosphorus 3.9 mg/dL (2.5-4.5); Potassium 4.2 mmol/L (3.4-5.0); Sodium 137 mmol/L (137-145)
[2024-10-21 19:26] LABS: Partial Thromboplastin Time 29.2 Seconds (22.3-36.8)
[2024-10-21] MEDS: ENOXAPARIN 80 MG/0.8 ML SYRINGE 142 MG SUB-Q (19:34)
[2024-10-21 19:37] LABS: NT Pro B Type Natriuretic Pept 785 pg/mL (19.9-100); Troponin I < 0.012 ng/mL (0.000-0.034)
--- NOTE | 2024-10-21 20:58 | ED_ITS ---
HPI - General Adult General Chief complaint: Recheck/Abnormal Lab/Rx Stated complaint: SOB Time Seen by Provider: 10/21/24 18:52 History of Present Illness HPI narrative: This is a 48 year male presenting ED with chief complaint of dyspnea on exertion. Patient developed viral symptoms about 6 days ago. During that time he felt short of breath but attributed to his cold. However once resolved was still becoming winded when tries house. He had an outpatient CT PA performed which showed a saddle embolism he was directed to the ED for evaluation. At this time the patient is resting in bed no complaints. He says he feels winded on exertion but no chest pain or any other symptoms. Related Data Home Medications ?Medication ?Instructions ?Recorded ?Confirmed ?Last Taken ?Type acetaminophen 325 mg capsule 325 mg PO Q6H PRN 07/16/21 07/17/21 Unknown History allopurinol 300 mg tablet 300 mg PO DAILY 07/16/21 07/17/21 Unknown History atorvastatin 40 mg tablet 40 mg PO DAILY 07/16/21 07/17/21 Unknown History furosemide 40 mg tablet 40 mg PO QAM 07/16/21 07/17/21 Unknown History ibuprofen 200 mg tablet 200 mg PO Q6H PRN 07/16/21 07/17/21 Unknown History levothyroxine 50 mcg tablet 50 mcg PO DAILY 07/16/21 07/17/21 Unknown History (Synthroid) lisinopril 10 mg tablet 10 mg PO DAILY 07/16/21 07/17/21 Unknown History metformin 500 mg tablet 500 mg PO TID 07/16/21 07/17/21 Unknown History potassium chloride 20 mEq 20 meq PO DAILY 07/16/21 07/17/21 Unknown History tablet,extended release(part/cryst) (Klor-Con M) Allergies Allergy/AdvReac Type Severity Reaction Status Date / Time No Known Allergies Allergy Mild Verified 07/17/21 10:24 [facility] Past Medical History Medical History Benign hypertension Gout Hyperlipidemia Type 2 diabetes mellitus Hypothyroidism Family History Family History Mother Family history of diabetes mellitus in first degree relative Father Obstructive sleep apnea Other Diabetes mellitus Social History Social History Smoking status: Never smoker Second hand tobacco smoke exposure: No Alcohol intake: never Exam 2 Narrative: APPEARANCE: No apparent distress. Head: atraumatic. EYES: EOMI, NOSE: Atraumatic NECK: Trachea midline RESPIRATORY: Tachypneic, CTAB CARDIOVASCULAR: RRR, left calf is mildly larger than the right calf ABDOMINAL: Non-distended soft nontender MUSCULOSKELETAl: No obvious deformities NEURO: Alert. Moving 4/4 extremities SKIN:: Warm, dry. Normal color PSYCHIATRIC: Normal affect Course Vital Signs Vital signs: Vital Signs Temperature 98.1 F 10/21/24 18:36 Pulse Rate 93 10/21/24 18:36 Respiratory Rate 14 10/21/24 18:36 Blood Pressure 127/77 10/21/24 18:36 Pulse Oximetry 100 10/21/24 18:36 Oxygen Delivery Room Air 10/21/24 18:36 Temperature 98.1 F 10/21/24 18:36 Pulse Rate 93 10/21/24 22:43 Respiratory Rate 18 10/21/24 22:43 Blood Pressure 121/81 10/21/24 22:43 Pulse Oximetry 97 10/21/24 22:43 Oxygen Delivery Room Air 10/21/24 18:36 Medical Decision Making MDM Narrative Medical decision making narrative: -Course: 48-year-old male sent from outside facility after an outpatient CTA-PE for saddle pulmonary embolus. Patient immediately given therapeutic Lovenox. On exam the patient is resting comfortably in bed with normal vital signs, no respiratory distress or oxygen requirements. No elevations in troponin. BNP of 785. Patient has a hemodynamically stable PE. Case discussed with Dr. Coe. While the patient is currently a hemodynamically stable PE, he does have evidence of right heart strain with a large clot burden. Dr. Coe discussed the case with Dr. Silvestre from [facility] [place] [facility] in the medical ICU. The patient has accepted transfer although there is no indication for intervention at this time outside of Lovenox. Patient will be monitored while awaiting a bed. Pulmonary Embolism Severity Index (PESI) from [employer] on 10/21/2024 All calculations should be rechecked by clinician prior to use RESULT SUMMARY: 56 points Class I, Very Low Risk: 0-1.6% 30-day mortality in this group. INPUTS: Age ?> 48 years Sex ?> 10 = Male History of cancer ?> 0 = No History of heart failure ?> 0 = No History of chronic lung disease ?> 0 = No Heart rate >=10 ?> 0 = No Systolic BP <100 mmHg ?> 0 = No Respiratory rate >=0 ?> 0 = No Temperature <36?C/96.8?F ?> 0 = No Altered mental status (disorientation, lethargy, stupor, or coma) ?> 0 = No O2 saturation <90% ?> 0 = No Independent EKG interpretation: Rhythm [sinus], Rate [97], [place] -[normal], PA -[normal], QRS [narrow], QTC [normal], T waves -[negative for concerning inversions], ST Segments - [Negative for concerning elevations] Final interpretations: Normal sinus rhythm - With nonspecific ST changes V1 to V3 Vital Signs Vital Signs: Vital Signs Temperature 98.1 F 10/21/24 18:36 Pulse Rate 93 10/21/24 18:36 Respiratory Rate 14 10/21/24 18:36 Blood Pressure 127/77 10/21/24 18:36 Pulse Oximetry 100 10/21/24 18:36 Oxygen Delivery Room Air 10/21/24 18:36 Temperature 98.1 F 10/21/24 18:36 Pulse Rate 93 10/21/24 22:43 Respiratory Rate 18 10/21/24 22:43 Blood Pressure 121/81 10/21/24 22:43 Pulse Oximetry 97 10/21/24 22:43 Oxygen Delivery Room Air 10/21/24 18:36 Lab Data 10/21/24 19:03 10/21/24 19:03 Labs: Lab Results 10/21/24 10/21/24 Range/Units 19:03 22:53 WBC 10.2 H (4.5-10.0) K/mm3 RBC 4.96 (4.6-6.20) M/mm3 Hgb 15.5 (14.0-18.0) g/dL Hct 45.1 (42.0-52.0) % MCV 90.9 (80-100) fl MCH 31.3 (26-34) pg MCHC 34.4 (32-36) g/dl RDW 12.7 (11.5-14.5) % Plt Count 153 (150-375) k/mm3 MPV 10.7 H (7.4-10.4) fl Immature Gran % (Auto) 0.3 (0-0.5) % Neut % (Auto) 63.7 (45.5-73.1) % Lymph % (Auto) 26.4 (18.3-44.2) % [place] % (Auto) 6.8 (2.6-8.5) % Eos % (Auto) 2.4 (0-4.4) % Baso % (Auto) 0.4 (0.2-1.2) % Lymph # (Auto) 2.70 (0.9-3.2) K/mm3 [place] # (Auto) 0.7 H (0.1-0.6) K/mm3 Eos # (Auto) 0.3 (0-0.3) K/mm3 Baso # (Auto) 0.0 (0.0-0.1) K/mm3 Abs Immat Gran (auto) 0.03 (0.00-0.031) K/mm3 Absolute Neuts (auto) 6.5 (1.3-6.7) K/mm3 Absolute Nucleated RBC 0.000 (0.0-0.012) K/mm3 Nucleated RBC % 0.0 (0.0-0.2) % PT 14.0 (11.1-14.7) Seconds INR 1.0 APTT 29.2 (22.3-36.8) Seconds Sodium 137 (137-145) mmol/L Potassium 4.2 (3.4-5.0) mmol/L Chloride 104 (98-107) mmol/L Carbon Dioxide 20 L (22-30) mmol/L Anion Gap 13 H (4-12) mmol/L BUN 13 (9-20) mg/dL Creatinine 0.65 L (0.7-1.3) mg/dL Estim Creat Clear Calc 166 ml/min Estimated GFR > 60 (59 - ) Glucose 113 H (65-110) mg/dL Lactic Acid 1.5 (0.7-2.0) mmol/L Calcium 9.1 (8.4-10.2) mg/dL Phosphorus 3.9 (2.5-4.5) mg/dL Magnesium 2.0 (1.6-2.3) mg/dL Total Bilirubin 1.0 (0.2-1.3) mg/dL AST 29 (17-59) U/L ALT 28 (6-50) U/L Alkaline Phosphatase 70 (38-126) U/L Troponin I < 0.012 < 0.012 (0.000-0.034) ng/mL NT-Pro-B Natriuret Pep 785 H (19.9-100) pg/mL Total Protein 8.0 (6.3-8.2) g/dL Albumin 4.4 (3.5-5.1) g/dL Discharge Plan Discharge Clinical Impression: Obesity, Pulmonary embolism Patient Disposition: Acute Care Hospital Condition: Stable Patient Language: Canadian Prescriptions: No Action acetaminophen 325 mg capsule 325 mg PO Q6H PRN allopurinol 300 mg tablet 300 mg PO DAILY atorvastatin 40 mg tablet 40 mg PO DAILY furosemide 40 mg tablet 40 mg PO QAM ibuprofen 200 mg tablet 200 mg PO Q6H PRN levothyroxine [Synthroid] 50 mcg tablet 50 mcg PO DAILY lisinopril 10 mg tablet 10 mg PO DAILY metformin 500 mg tablet 500 mg PO TID potassium chloride [Klor-Con M20] 20 mEq tablet,ER particles/crystals 20 meq PO DAILY eszopiclone 2 mg tablet 2 mg PO QHS Qty: 1 0RF Rx Instructions: Take tablet with you to sleep center for sleep study Follow-up/Referrals: PHYSICIAN NOT ON STAFF,NONSTAFF [Primary Care Provider] -
--- NOTE | 2024-10-21 22:24 | PC.NURSE ---
2220 Spoke with [facility], Patient is accepted to [facility] ICU when bed is available by Dr Larson. geriatric nurse assistant aware
--- NOTE | 2024-10-21 23:01 | ECG_ITS ---
Test Date: 2024-10-21 23:08:05 Measurements Intervals [place] Rate: 97 P: 35 NH: 175 QRS: -19 QRSD: 89 T: -9 QT: 350 QTc: 446 Interpretive Statements SINUS RHYTHM DELAYED PRECORDIAL R/S TRANSITION CONSIDER INFERIOR INFARCT, AGE INDETERMINATE BASELINE ARTIFACT- I, II, III, AVR, AVL, AVF, V1-V6 ABNORMAL ECG Compared to ECG 10/21/2024 19:17:30 Myocardial infarct finding now present Electronically Signed On 10-22-2024 06:33:13 SECURITIES COUNSELOR by Mat Jessica D.O.
--- NOTE | 2024-10-21 23:13 | ECG_ITS ---
Test Date: 2024-10-21 23:13:20 Measurements Intervals [place] Rate: 98 P: 53 NH: 160 QRS: 40 QRSD: 97 T: 51 QT: 361 QTc: 461 Interpretive Statements SINUS RHYTHM DELAYED PRECORDIAL R/S TRANSITION BORDERLINE T WAVE ABNORMALITY- ANTERIOR LEADS BASELINE ARTIFACT- I, III, AVR, AVL BORDERLINE ECG Compared to ECG 10/21/2024 23:08:05 NO SIGNIFICANT CHANGE Electronically Signed On 10-22-2024 10:36:06 DRIVABILITY TECHNICIAN by Mat Jessica D.O.
[2024-10-21 23:22] LABS: Troponin I < 0.012 ng/mL (0.000-0.034)
== END 2024-10-22 00:25 | disposition short-term general hospital (02) ==
PROVIDERS: Emergency Provider Emergency Medicine
DX: I26.99 Other pulmonary embolism without acute cor pulmonale (principal); E66.9 Obesity, unspecified; Z68.42 Body mass index [BMI] 45.0-49.9, adult; I10 Essential (primary) hypertension; E78.5 Hyperlipidemia, unspecified; E03.9 Hypothyroidism, unspecified; E11.9 Type 2 diabetes mellitus without complications; M10.9 Gout, unspecified; Z79.84 Long term (current) use of oral hypoglycemic drugs; Z79.899 Other long term (current) drug therapy; R94.31 Abnormal electrocardiogram [ECG] [EKG]
CPT/HCPCS: 36415; 70450; 71045; 80053; 83605; 83735; 83880; 84100; 84484; 85025; 85610; 85730; 93005; 96372; 99285; J1650